=== PATIENT | male | born 1960 | race Caucasian/White ===

== ENCOUNTER 2022-09-23 14:14 | Outpatient (CLI) | payer BC, SELFPAY ==
--- NOTE | 2022-09-23 14:48 | ECG_ITS ---
Measurements Intervals [place] Rate: 72 P: 36 MT: 152 QRS: 43 QRSD: 89 T: 44 QT: 382 QTc: 419 Interpretive Statements SINUS RHYTHM BASELINE ARTIFACT NORMAL ECG NO PREVIOUS ECG AVAILABLE FOR COMPARISON Electronically Signed On 09-23-2022 14:58:25 [facility] by Dejan Hinson M.D.
[2022-09-23 15:50] LABS: Anion Gap 12 mmol/L (8-16); Blood Urea Nitrogen 13 mg/dL (7-18); Calcium 9.5 mg/dL (8.5-10.1); Carbon Dioxide 26 mmol/L (21-32); Chloride 101 mmol/L (98-108); Estimated Glomerular Filt Rate > 60; Osmolality Calculated 302 mOsm/kg (285-295); Potassium 3.9 mmol/L (3.5-5.1); Sodium 139 mmol/L (136-145)
[2022-09-23 15:53] LABS: Glucose 358 mg/dL (70-99)
== END 2022-09-23 14:15 | disposition home or self-care (01) ==
LOC: CHSLAB 14:17
PROVIDERS: PCP Family Medicine; Visit Provider Orthopaedic Surgery Hand Surgery
DX: M25.512 Pain in left shoulder (principal)
CPT/HCPCS: 36415; 80048; 93005

== ENCOUNTER 2024-12-28 10:13 | Outpatient (CLI) | payer OTHER, SELFPAY ==
[2024-12-28 10:55] LABS: Anion Gap 8 mmol/L (4-12); Blood Urea Nitrogen 24 mg/dL (9-20); Calcium 9.9 mg/dL (8.4-10.2); Carbon Dioxide 30 mmol/L (22-30); Chloride 100 mmol/L (98-107); Estimated Glomerular Filt Rate > 60; Glucose 140 mg/dL (65-110); Potassium 4.1 mmol/L (3.4-5.0); Sodium 138 mmol/L (137-145)
--- OUTSIDE RECORDS SUMMARY | 2024-12-28 11:38 | XMS_ITS | Clinical Summary ---
Author Organization [facility] Address [address] [place] [address] Care Team Providers Care Fingernail Former Name Role Phone Manish Nj MD Primary Care Provider [phone] Allergies Active Allergy Reactions Criticality Noted Date Comments Aspirin Rash Medium 05/09/2020 Medications lisinopril-hydr oCHLOROthiazide (ZESTORETIC) 20-12.5 mg per tablet 2 tablets Active traMADoL (ULTRAM) 50 mg tablet TAKE 1 TO 2 TABLETS BY MOUTH EVERY 6 HOURS NEEDED 04/18/2020 Active metFORMIN XR (GLUCOPHAGE XR) 500 mg 24 hr tablet Take 1,000 mg by mouth 2 (two) times a day 05/01/2020 Active Active Problems Problem Noted Date Diagnosed Date Sensorineural hearing loss ( SNHL) of left ear with restricted hearing of right ear 05/09/2020 Assessment & Plan (05/09/2020 1:44 PM CDT): Avoid ear cleaning techniques Avoid water to ears Call if ears plug up again Impacted cerumen of right ear 05/09/2020 Assessment & Plan (05/09/2020 1:44 PM CDT): Avoid ear cleaning techniques Avoid water to ears Call if ears plug up again Vinegar and water recipe discussed and Handout provided Surgical History Surgery Date Site/Laterality Comments CHOLECYSTECTOMY KNEE SURGERY NECK SURGERY Medical History Medical History Date Comments Hypertension Diabetes (HCC) Social History Tobacco Use Types Packs/Day Years Used Date Smoking Tobacco: Never Smokeless Tobacco: Never Alcohol Use Standard Drinks/Week Comments Not Currently 0 (1 standard drink = 0.6 oz pur e alcohol) Personal Safety Answer Date Recorded Getting School Help Needed Not on file 01/02 Sex and Gender Information Value Date Recorded Sex Assigned at Not on file 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 Gender Identity Not on file Sexual Orientation Not on file Obstetrics History Last Filed Vital Signs Vital Sign Reading Time Taken Comments Blood Pressure 143/76 05/09/2020 1:27 PM CDT Pulse 98 05/09/2020 1:27 PM CDT Temperature 36.4 C (97.5 F) 05/09/2020 1:25 PM CDT Respiratory Rate - - Oxygen Saturation - - Inhaled Oxygen Concentration - - Weight 130.3 kg (287 lb 3.2 oz) 05/09/2020 1:25 PM CDT Height 182.9 cm (6') 05/09/2020 1:25 PM CDT Body Mass Index 38.95 05/09/2020 1:25 PM CDT Plan of Treatment Health Maintenance Due Date Last Done Comments Colon Cancer Screening-Colonoscopy 1962 Depression Screening 1962 Hepatitis C Screening 1962 Prostate Cancer Screening-PSA 1962 DTaP/Tdap/Td Vaccine (1 - Tdap) 1973 Hepatitis B Screening 1980 Regular Well Visit/Exam 18-64 1980 Zoster Vaccine (1 of 2) 2012 Covid-19 Vaccine (2023-2 5 season) 2024 10/28/2021, 12/26/2020, 11/28/2020 Influenza Vaccine (#1) 2024 Pneumococcal vaccine <65 Aged Out No longer eligible based on patient's age to complete this topic Insurance [facility] OOS BLUE ACCESS OOS BLUE ACCESS OOS Care Teams Fingernail Former Relationship Specialty Start Date End Date Manish Nj MD [address] [place] [address] [place] [address] PCP - General Family Medicine 04/18/20
--- OUTSIDE RECORDS SUMMARY | 2024-12-28 11:38 | XMS_ITS | Referral Summary ---
Author Organization [facility] Address [address] [place] [address] Care Team Providers Care Instructional Design Specialist Name Role Phone Manish Nj MD Primary Care Provider [phone] Allergies Active Allergy Reactions Criticality Noted Date [...] and water recipe discussed and Handout provided Social History Tobacco Use Types Packs/Day Years Used Date Smoking Tobacco: Never Smokeless Tobacco: Never Alcohol Use Standard Drinks/Week Comments Not Currently 0 (1 standard drink = 0.6 oz pur e alcohol) Personal Safety Answer Date Recorded Getting School Help Needed Not on file 01/02 Sex and Gender Information Value Date Recorded Sex Assigned at Not on file 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 Care Teams Instructional Design Specialist Relationship Specialty Start Date End Date Manish Nj MD [facility] [place] [address] PCP - General Family Medicine 04/18/20
--- OUTSIDE RECORDS SUMMARY | 2024-12-28 11:38 | XMS_ITS | Clinical Summary ---
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 Gender Identity Not on file Sexual Orientation Not on file Last Filed Vital Signs Vital Sign Reading Time Taken Comments Blood Pressure 168/84 08/03/2022 1:11 AM CDT Pulse 85 08/03/2022 1:11 AM CDT Temperature 36.2 C (97.1 F) 08/02/2022 7:45 PM CDT Respiratory Rate 18 08/03/2022 1:11 AM CDT Oxygen Saturation 97% 08/03/2022 1:11 AM CDT Inhaled Oxygen Concentration - - Weight 129.3 kg (285 lb) 08/02/2022 7:45 PM CDT Height 182.9 cm (6') 08/02/2022 7:45 PM CDT Body Mass Index 38.65 08/02/2022 7:45 PM CDT Plan of Treatment Health Maintenance Due Date Last Done Comments Colorectal Cancer Screening Colonoscopy (10 Years) 1962 Annual Physical 1965 Hepatitis C 1980 Zoster Vaccines (1 of 2) 2012 DTaP, Tdap and Td Vaccines ( 1 - Tdap) 02/10/2024 02/09/2024 COVID-19 Vaccine ( - 2023-2 5 season) 2024 10/28/2021, 12/26/2020, 11/28/2020 Influenza Adult (#1) 2024 RSV Immunization or 60+ Years (1 - 1-dose 75+ series) 2037 Meningococcal B Vaccine Aged Out No l onger eligible based on patient's age to complete this topic Meningococcal Vaccine Aged Out No hany heather eligible based on patient's age to complete this topic Pneumococcal Vaccine: Pediatrics (0 to 5 Years) and At-Risk Patients (6 to 64 Years) Aged Out No longer eligible b ased on patient's age to complete this topic RSV Immunizations Under 20 Months Aged Out No longer eligible b ased on patient's age to complete this topic Insurance [facility] Care Teams Plaster Mold Maker Relationship Specialty Start Date End Date None, Provider, PCP - General UNKNOWN PHYSICIAN SPECIALTY 08/02/22
--- OUTSIDE RECORDS SUMMARY | 2024-12-28 11:39 | XMS_ITS | CONTINUITY OF CARE DOCUMENT ---
Author Name ofe ofe Address Unknown Organization [facility] Address [address] [place] [address] Phone [phone] Care Team Providers Care Precipitate Washer Name Role Phone EDWIN MOLINA, MICHELL Bob Unavailable [phone] SEPIDEH MOLINA, HELLEN Brown Unavailable INSURANCE PROVIDERS Payer name Policy type / Coverage type [address] [facility] constitution party ID COVENTRY- OPEN ACCESS/PPO Other [id number]
--- OUTSIDE RECORDS SUMMARY | 2024-12-28 11:39 | XMS_ITS | Data Portability ---
Author Organization [place] [facility] [employer], Main Office Address [address] [place] [address] Care Team Providers Care Sticker Hand Name Role Phone MANISH VALENTE Primary Care Provider [phone] MANISH VALENTE Referring Provider Assessment No assessment recorded. Plan of Treatment Reminders Order Date Submit Date Provider Last Modified By Organization Details Last Modified Time Details Appointments Any 15 2024 09:00A BASSAM Varner Not available Not available Not available Lab glycohe moglobi n, total, blood 2023 024 [facility] (Lab), [address] [place], [address], 05/05/2024 21:32:02 Referral pain managem ent referra l - Please call patient to nick hassan an appoint ment. Thank you. 2023 024 [email or web address] Interventional Pain Management, 2022 Promise [place], [address], [address], 09/30/2024 08:44:00 Procedures None recorde d. Surgeries None recorde d. Imaging electro myogram + nerve conduct ion study - Please call pt to nick hassan 2023 024 [facility] --Emg & Nerve Condution Scheduling, [address], [place], [address], 09/08/2024 16:51:22 Medication Orders Ozempic 0.25 mg or 0.5 mg (2 mg/3 mL) subcuta neous pen injecto r [address] [facility] [address] [place], [address], 11/02/2024 10:07:51 Ozempic 1 mg/dose (4 mg/3 mL) subcuta neous pen injecto r [address] [facility] [address] [facility], [place], [address], 09/01/2024 15:18:16 duloxet ine 60 mg capsule ,delaye d release [address] [facility] [address] [facility], [place], [address], 09/01/2024 15:18:17 acetami nophen 500 mg tablet 2023 024 [facility] [address] [facility], [place], [address], 09/01/2024 14:43:40 Ozempic 2 mg/dose (8 mg/3 mL) subcuta neous pen injecto r 2023 024 [facility] [address] [place], [address], 11/02/2024 09:56:05 cyanoco balamin (vit B-12) 1,000 mcg/mL injecti on solutio n [address] [facility] [address] [place], [address], 05/05/2024 15:48:32 Patient TargetsNo targets recorded. Patient InstructionsNo instructions recorded. Reason for Referral Pain Management Referral for Degeneration of cervical intervertebral disc Please call patient to schedule an appointment. Thank you. Referring Physician: Ita Salas, Family Medicine, Encounter Date: 09/01/2024 Results Created Date Observation Date Name Description Value Unit Range Abnormal Flag Note LastModifiedBy Organization Detail LastModifiedTime 09/08/20 24 09/08/2024 elect romyo gram + nerve condu ction study No observ ation record ed. [facility] [address] [place], [address], 09/09/2024 08:05:44 09/13/20 24 09/08/2024 elect romyo gram + nerve condu ction study No observ ation record ed. [email or web address] [facility] [address] [place], [address], 09/14/2024 11:43:10 Result Notes None recorded. Problems Name Problem SNOMED Code Status Onset Date Resolution Date Notes Provider Name and Address Organization Details Recorded Time Pain of left shoulder joint 1592145056339 9109 Active 2021 Not Available [facility] 3 05:29:41 Plantar fasciitis 400297066 Active Not Available [facility] 3 05:29:41 Osteoarthr itis of knee 176592436 Active Not Available [facility] 3 05:29:41 Cervical spondylosi s without myelopathy 538160021 Active Not Available [facility] 3 05:29:41 Hypertensi ve disorder 18695001 Active Not Available [facility] 3 05:29:41 Hyperlipid emia 70249059 Active Not Available [facility] 3 05:29:41 Essential hypertensi on 90992238 Active Not Available [facility] 3 05:29:41 Pernicious anemia 74071388 Active Not Available [facility] 3 05:29:41 Partial thickness rotator cuff tear 650149491 Active 2022 Not Available [facility] 3 05:29:41 Full thickness rotator cuff tear 421440266 Active 2022 Not Available [facility] 3 05:29:41 Type 2 diabetes mellitus without complicati on 556979999 Active 2022 Not Available [facility] 3 05:29:41 Chronic low back pain 287908161 Active 2022 Not Available [facility] 3 05:29:41 Vitamin B12 deficiency (non anemic) 79098235 Active 2022 Not Available [facility] 3 05:29:41 Obese 152119732 Active 2023 ROSIE Lerma [address], [address], [place], [address] , [employer] [facility] 4 12:27:08 Screening for malignant neoplasm of prostate Active 2023 ROSIE Lerma [address], [address], [place], [address] , [employer] [facility] 4 12:12:33 Spinal stenosis in cervical region 93708339 Active 2023 BASSAM Hood [address], [address], [place], [address] , [facility] 4 15:27:55 Blister of foot without infection 4030250 Active 2023 BASSAM Hood [address], [address], [place], [address] , [employer] [facility] 4 15:33:09 Neuropathy 967283470 Active 2023 BASSAM Hood [address], [address], [place], [address] , [employer] [facility] 4 17:11:26 Degenerati on of cervical interverte bral disc 37220659 Active 2023 BASSAM Hood [address], [address], [place], [address] , [employer] [facility] 4 15:47:04 Disorder of vitamin B12 263274623 Active 2023 BASSAM Hood [address], [address], [place], [address] , [facility] [employer] [facility] 4 15:48:01 Bilateral carpal tunnel syndrome 3624505840534 9101 Active 2023 BASSAM Hood [address], [facility] [address], [place], [address] , [facility] [employer] [facility] 4 17:05:34 Problem Notes None recorded. Procedures Surgical History Date Name Laterality Status Provider Name and Address Organization Details Recorded Time cholecystectomy completed Yoly Reese RN [facility] [employer] [facility] 02/09/2024 15:16:38 arthroplasty of left shoulder completed Yoly Reese RN [facility] [employer] [facility] 02/09/2024 15:16:49 Imaging Results Imaging Date Name Status LastModified by Organization Details LastModified Time 09/08/2024 electromyogram + nerve conduction study completed [email or web address] [place] [address] Outpatient Physical Therapy Work [facility] [address] [place] [address], [address], 09/09/2024 08:05:44 09/08/2024 electromyogram + nerve conduction study completed [facility] Physical [facility] [address] [place] [address], [address], 09/14/2024 11:43:10 Procedure Notes None recorded. Medical Equipment None Reported. Allergies Allergen ID Allergen Name Allergen Category Reaction Reaction Severity Criticality Documentation Date Start Date Code Code System Note Provider Name and Address Organization Details Recorded Time 62815 niacin medicatio n Not available Not available Not available 12/18/2022 7393 RxNorm Not Available [facility] 3 06:00:27 26880 aluminum aspirin Not available hives Not available Not available 12/18/20222021 611 RxNorm Not Available [facility] 3 06:00:27 51472 Easprin medicatio n Not available Not available Not available 12/18/202222057 4 RxNorm Not Available [facility] 3 06:00:27 Medications Name Sig Start Date Stop Date Status Note LastModified by Organization Details LastModified Time Prescriptio n - Change active Not Available Not Available N ot Available Prescriptio n - Prior Authorizati on Request active Not Available Not Available N ot Available carisoprodo l 350 mg tablet TAKE 1 TABLET BY MOUTH THREE TIMES DAILY 05/01 completed Not Available Not Available Not Available amoxicillin 500 mg capsule Take 1 capsule every 8 hours by oral route. active Not Available Not Available No t Available hydrocodone 7.5 mg-ibuprofe n 200 mg tablet active Not Available Not Available Not Available syringe (disposable ) 1 mL use to administe r cyanocoba brandy once a month 03/09 completed Not Available Not Available Not Available prednisone 10 mg tablet 12/11 completed Not Available Not Available Not Available clindamycin HCl 300 mg capsule TAKE 1 CAPSULE BY MOUTH EVERY 6 HOURS UNTIL GONE 05/13 completed Not Available Not Available Not Available BD Insulin Syringe 1 mL 25 x 1 03/09 completed Not Available Not Available Not Available lisinopril 20 mg-hydrochl orothiazide 12.5 mg tablet Take 2 tablets by mouth once daily 2024 active Not Available Not Available Not Avai lable azithromyci n 250 mg tablet Take 2 TABLET EVERY DAY by oral route for 1 day. Than 1 tablet for 4 days 04/08 completed Not Available Not Available Not Available tizanidine 4 mg tablet TAKE 1 TABLET BY MOUTH EVERY 6 HOURS 02/08 completed Not Available Not Available Not Available metoprolol succinate ER 50 mg tablet,exte nded release 24 hr Take 1 tablet every day by oral route. active Not Available Not Available No t Available hydrocodone 5 mg-acetamin ophen 325 mg tablet 02/14 completed Not Available Not Available Not Available meloxicam 15 mg tablet Take 1 tablet every day by oral route. 05/01 completed Not Available Not Available Not Available sucralfate 1 gram tablet Take 1 tablet 4 times a day by oral route. active Not Available Not Available No t Available penicillin V potassium 500 mg tablet Take 1 tablet every 8 hours by oral route. active Not Available Not Available No t Available acetaminoph en 300 mg-codeine 30 mg tablet TAKE 1 TABLET BY MOUTH 4 TIMES DAILY NEEDED 03/06 completed Not Available Not Available Not Available amlodipine 5 mg tablet TAKE 1 TABLET BY MOUTH ONCE DAILY 06/29 completed Not Available Not Available Not Available ciprofloxac in 500 mg tablet Take 1 tablet every 12 hours by oral route for 5 days. 03/09 completed Not Available Not Available Not Available sulfamethox azole 800 mg-trimetho prim 160 mg tablet TAKE 1 TABLET BY MOUTH EVERY 12 HOURS UNTIL GONE 11/02 completed Not Available Not Available Not Available hydrocodone 10 mg-acetamin ophen 325 mg tablet Take 1-2 TABLET EVERY 4 HOURS by oral route prn. 03/09 completed Not Available Not Available Not Available tramadol 50 mg tablet TAKE 1 TABLET BY MOUTH EVERY 6 TO 8 HOURS NEEDED FOR PAIN active Not Available Not Available No t Available acetaminoph en 500 mg tablet Take 2 tablets every 8 hours by oral route as needed for 30 days. 09/01 completed Not Available Not Available Not Available sildenafil 100 mg tablet Take 1 tablet every day by oral route as needed. 03/06 completed Not Available Not Available Not Available triamcinolo ne acetonide 0.1 % topical cream Apply 1 applicati on twice a day by topical route for 30 days. active Not Available Not Available No t Available ondansetron 8 mg disintegrat ing tablet DISSOLVE 1 TABLET IN MOUTH THREE TIMES DAILY NEEDED 03/06 completed Not Available Not Available Not Available Celebrex 200 mg capsule Take 1 capsule every day by oral route. 2013 active Not Available Not Available Not Avai lable tamsulosin 0.4 mg capsule Take 1 capsule every day by oral route. active Not Available Not Available No t Available amlodipine 10 mg tablet Take 1 tablet every day by oral route as directed for 90 days. active Not Available Not Available No t Available hydrocodone 7.5 mg-acetamin ophen 325 mg tablet TAKE 1 TABLET BY MOUTH EVERY 6 HOURS NEEDED FOR PAIN 03/06 completed Not Available Not Available Not Available cyanocobala min (vit B-12) 1,000 mcg/mL injection solution INJECT 1 ML INTRAMUSC ULARLY ONCE EVERY MONTH active Not Available Not Available No t Available hydrocodone 7.5 mg-acetamin ophen 750 mg tablet active Not Available Not Available No t Available BD Luer-Placido Syringe 3 mL 25 gauge x 1 USE WITH B12 INJECTION S 08/12 completed Not Available Not Available Not Available hydrocodone 5 mg-acetamin ophen 500 mg tablet active Not Available Not Available No t Available mupirocin 2 % topical ointment APPLY A SMALL AMOUNT TO THE AFFECTED AREA(S) THREE TIMES DAILY active Not Available Not Available No t Available clobetasol 0.05 % topical ointment 03/09 completed Not Available Not Available Not Available lisinopril 10 mg-hydrochl orothiazide 12.5 mg tablet TAKE TWO TABLETS BY MOUTH ONCE DAILY 05/01 completed Not Available Not Available Not Available levofloxaci n 500 mg tablet 03/09 completed Not Available Not Available Not Available methylpredn isolone 4 mg tablets in a dose pack TAKE BY MOUTH DIRECTED ON INSIDE OF PACKAGE 08/15 completed Not Available Not Available Not Available metformin ER 500 mg tablet,exte nded release 24 hr TAKE 2 TABLETS BY MOUTH TWICE DAILY 09/01 completed Not Available Not Available Not Available naproxen 500 mg tablet Take 1 tablet by mouth twice daily active Not Available Not Available No t Available amoxicillin 875 mg-potassiu m clavulanate 125 mg tablet TAKE 1 TABLET BY MOUTH EVERY 12 HOURS 07/04 completed Not Available Not Available Not Available oxycodone 5 mg tablet 03/06 completed Not Available Not Available Not Available duloxetine 30 mg capsule,del ayed release TAKE 1 CAPSULE BY MOUTH ONCE DAILY DIRECTED 11/02 completed Not Available Not Available Not Available duloxetine 60 mg capsule,del ayed release TAKE 1 CAPSULE BY MOUTH ONCE DAILY DIRECTED active Not Available Not Available No t Available pregabalin 100 mg capsule TAKE 1 CAPSULE BY MOUTH THREE TIMES DAILY active Not Available Not Available No t Available metformin ER 500 mg 24 hr tablet,exte nded release (gastric retention) Take 2 tablets twice a day by oral route. 08/12 completed Not Available Not Available Not Available icosapent ethyl 1 gram capsule Take by oral route for 30 days. 08/21 completed Not Available Not Available Not Available Jardiance 25 mg tablet Take 1 tablet every day by oral route as directed for 90 days. 06/29 completed Not Available Not Available Not Available Ozempic 0.25 mg or 0.5 mg (2 mg/1.5 mL) subcutaneou s pen injector Inject 0.25 mg every week by subcutane ous route. 12/11 completed Not Available Not Available Not Available Ozempic 1 mg/dose (4 mg/3 mL) subcutaneou s pen injector INJECT 1MG SUBCUTANE OUSLY ONCE WEEKLY active Not Available Not Available No t Available Ozempic 2 mg/dose (8 mg/3 mL) subcutaneou s pen injector INJECT 2MG SUBCUTANE OUSLY ONCE WEEKLY 11/02 completed Not Available Not Available Not Available Ozempic 0.25 mg or 0.5 mg (2 mg/3 mL) subcutaneou s pen injector INJECT 0.5MG SUBCUTANE OUSLY ONCE EVERY WEEK active Not Available Not Available No t Available Vitals Date Recorded Body height Body mass index (BMI) Body weight Body temperature Heart rate Oxygen saturation Oxygen saturation in Arterial blood by Pulse oximetry Systolic blood pressure Diastolic blood pressure Provider Name and Address Organization Details Last Updated DateTime 182.88 cm 34.9 kg/m2 337874. 59 g 98.2 [degF] 90 /min 97 % 97 % 154 mm[Hg] 86 mm[Hg] Maurice Hdz [facility] [employer] 15:20:47 Date Recorded Respiratory rate Provider Name a nd Address Organization Details Last Updated DateTime 05/05/2024 20 /min Kevin Devine [address] [place] [address], [address], [place] [facility] [employer] 05/05/2024 15:27:36 Date Recorded Body height Provider Name an d Address Organization Details Last Updated DateTime 05/05/2024 182.88 cm Yoly Reese RN [facility] [employer] 05/05/2024 17:03:49 Date Recorded Body height Body mass index (BMI) Body weight Body temperature Heart rate Respiratory rate Oxygen saturation Oxygen saturation in Arterial blood by Pulse oximetry Pain severity - 0-10 verbal numeric rating [Score] - Reported Systolic blood pressure Diastolic blood pressure Provider Name and Address Organization Details Last Updated DateTime 4 182.88 cm 33.1 kg/m2 987497. 59 g 97.2 [degF] 91 /min 24 /min 98 % 98 % 3 136 mm[Hg] 76 mm[Hg] Yoly Reese RN [facility] [employer] [facility] 4 14:11:45 Date Recorded Body height Body mass index (BMI) Body weight Body temperature Heart rate Respiratory rate Oxygen saturation Oxygen saturation in Arterial blood by Pulse oximetry Pain severity - 0-10 verbal numeric rating [Score] - Reported Systolic blood pressure Diastolic blood pressure Provider Name and Address Organization Details Last Updated DateTime 4 182.88 cm 34 kg/m2 218017. 68 g 97.2 [degF] 75 /min 20 /min 98 % 98 % 4 164 mm[Hg] 84 mm[Hg] Yoly Reese RN [facility] [employer] 4 14:46:59 Date Recorded Body height Body mass index (BMI) Body weight Body temperature Heart rate Respiratory rate Oxygen saturation Oxygen saturation in Arterial blood by Pulse oximetry Pain severity - 0-10 verbal numeric rating [Score] - Reported Systolic blood pressure Diastolic blood pressure Provider Name and Address Organization Details Last Updated DateTime 5 182.88 cm 35.6 kg/m2 553665 g 97.2 [degF] 105 /min 24 /min 97 % 97 % 0 178 mm[Hg] 90 mm[Hg] Yoly Reese RN [facility] [employer] 5 09:47:40 Social History Question Answer Notes LastModified by Organizat ion Details LastModified Time Tobacco Smoking Status Unknown If Ever Smoked Carolin [email or web address], [place] [facility] [employer] 03/25/2023 09:52:50 Do You Have An Advance Directive? No Information not available 02/09/2024 What Is Your Level Of Alcohol Consumption? None [id number] Information not available 12/18/2022 In The 14 Days Before Symptom Onset, Have You Had Close Contact With A Laboratory-confi rmed COVID-19 While That Case Was Ill? No Information not available 02/09/2024 In The 14 Days Before Symptom Onset, Have You Had Close Contact With A Person Who Is Under Investigation For COVID-19 While That Person Was Ill? No Information not available 02/09/2024 Are You Currently Employed? Yes Information not available 02/09/2024 What Type Of Diet Are You Following? 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 No Information not available 02/09/2024 Where Do You Live? SingleLevelHouse Information not available 02/09/2024 Do You Have A Medical Power Of Software Asset Management Analyst? No Information not available 02/09/2024 What Was The Date Of Your Most Recent Tobacco Screening? 08/15/2022 [email or web address] Information not available 03/25/2023 Do You Have Any Pets? Yes Information not available 02/09/2024 What Is Your Relationship Status? [email or web address] Information not available 01/15/2024 Do You Use Your Seat Belt Or Car Seat Routinely? Yes Information not available 02/09/2024 Do You Have Smoke And Carbon Monoxide Detectors In Your Home? Yes Information not available 02/09/2024 Are You Passively Exposed To Smoke? No Information not available 02/09/2024 Are There Any Smokers In Your House? No Information not available 02/09/2024 Do You Participate In Social Media? No Information not available 02/09/2024 Do You Feel Stressed (tense, Restless, Nervous, Or Anxious, Or Unable To Sleep At Night)? [id number] Information not available 09/01/2024 Have You Recently Traveled Abroad? No Information not available 02/09/2024 Sex: Unknown Functional Status Question Answer Note LastModified by Organization D etails LastModified Time What is your exercise level? None Information not available 02/09/2024 Mental Status None recorded. Family History Nothing Reported. Medical History Condition Response DIABETES, TYPE Y OBESITY Y AUTISM SPECTRUM DISORDER (ASD) Y HYPERTENSION Y HIGH CHOLESTEROL / HYPERLIPIDEMIA Y Immunizations Vaccine Type Date Status Note Provider Nam mo and Address Organization Details Recorded Time COVID-19, mRNA, LNP-S, PF, 100 mcg/0.5mL dose or 50 mcg/0.25mL dose 02/09/202 1 completed BASSAM Hood [address], [address], [place], [address], [facility] [employer] [facility] 02/09/2024 15:35:52 COVID-19, mRNA, LNP-S, PF, 100 mcg/0.5mL dose or 50 mcg/0.25mL dose 1 completed BASSAM Hood [address], [address], [place], [address], [facility] [employer] [facility] 02/09/2024 15:35:52 COVID-19, mRNA, LNP-S, PF, 30 mcg/0.3 mL dose 2 completed BASSAM Hood [address], [place], [address], [facility] [employer] [facility] 02/09/2024 15:35:52 Td (adult), 2 Lf tetanus toxoid, preservative free, adsorbed 4 completed Yoly Reese RN [place], [place] [facility] [employer] [facility] 02/09/2024 16:11:51 Past Encounters Encounter ID Performer Location Encounter Start Date Encounter Closed Date Diagnosis/Indication Diagnosis SNOMED-CT Code Diagnosis ICD10 Code Diagnosis Note [id number] [facility] [place] [place] [address] 06/06/2022 00:00:00 06/07/2022 06:35:04 [id number] [facility] [place] [address] 07/04/2022 00:00:00 07/05/2022 06:11:29 [id number] [facility] [place] [address] [place] [address] 08/15/2022 00:00:00 08/15/2022 13:18:21 [id number] [facility] [place] [address] [facility] [address] [place] [address] 08/23/2022 00:00:00 08/23/2022 11:52:56 [id number] [facility] [place] [address] [place] [address] 08/27/2022 00:00:00 08/27/2022 12:10:22 [id number] [facility] [place] [address] [place] [address] 10/08/2022 00:00:00 10/08/2022 10:43:10 [id number] [facility] [place] [address] [place] [address] 10/15/2022 00:00:00 10/15/2022 10:22:13 [id number] [facility] [place] [address] [place] [address] 11/05/2022 00:00:00 11/05/2022 12:14:58 [id number] [facility] [place] [address] [place] [address] 12/17/2022 00:00:00 12/17/2022 12:47:31 [id number] Salomon Vital MD [facility] [place] [address] [place] [address] 01/14/2023 09:51:29 01/14/2023 10:38:21 Partial thickness rotator cuff tear 950336102 M75.102 Full thick ness rotator cuff tear 744020236 M75.122 patient can continue with strengthen ing now as tolerated he is 3 months postop we will work on phase 3 strengthen ing. Due to his cervical issues they can also do cervical traction for 10-15 minutes prior to starting the therapy on his shoulder as he is getting some cervical impingemen t type issue with forward elevation of the arm. I will see him back in 3 months. Follow-up with Dr. Jeronimo concerning his cervical nerve root impingemen t [id number] Manish Nj MD [facility] Ivon pereyra [address] [place] [address] 03/06/2023 14:03:53 03/06/2023 14:50:56 Uncontrolled type 2 diabetes mellitus 688028964 E11.65 A1C is 8.1% will start ozempic F/u in 3 months Chronic neck pain 805425 9015 107 M54.2 tramadol sent to [facility]. [id number] ROSIE Oswald [facility] [place] [address] [place] [address] 03/25/2023 09:51:39 03/25/2023 10:31:26 Pain of left shoulder joint 5082544665 [id number] M25.512 [id number] Manish Nj MD [facility] Ivon pereyra [address] [facility] [place] [address] 06/12/2023 16:14:11 06/12/2023 16:51:18 Type 2 diabetes mellitus without complication [id number] E11.9 Hyperlipidemia 51993877 E78.5 Bereavement 36294005 Z63 .4 Suggest counseling for grief Vitamin B1 2 deficiency (non anemic) 15630431 E53.8 Chronic neck pain 175795 8138 107 M54.2 tramadol sent to [facility] [id number] ROSIE [facility] Ivon pereyra [address] [facility] [place] [address] 12/11/2023 12:13:11 12/11/2023 12:34:14 Obese [id number] E66.9 Shoulder joint pain 2679 64917 M25.519 left [id number] ROSIE [facility] Ivon pereyra [address] [place] [address] 01/15/2024 11:46:21 01/15/2024 12:14:34 Arthritis 0873182 M19.90 Chronic low back pain 27 8980935 M54.50 Essential hypertension 80342904 I10 Full thick ness rotator cuff tear 468627756 M75.122 Hyperlipidemia 76485839 E78.5 Osteoarthritis 949713954 M19.90 Pernicious anemia 845859 09 D51.0 Type 2 hoang betes mellitus without complication 643473491 E11.9 Screening for malignant neoplasm of prostate 003145850 Z12.5 Vitamin B1 2 deficiency (non anemic) 93211766 E53.8 [id number] ROSIE [facility] [address] [facility] [place] [address] 01/28/2024 14:36:22 01/30/2024 04:10:39 [id number] Ita Salas [address] [address] 02/09/2024 15:03:37 02/09/2024 15:58:18 Spinal stenosis in cervical region 45634644 M48.02 Blister of foot without infection 7063034 S90.821A Administra tion of diphtheria, pertussis, and tetanus vaccine 373885268 Z23 Essential hypertension 47058597 I10 [id number] Ita Salas [employer] [address] [address] 03/23/2024 16:12:14 03/23/2024 17:28:48 Chronic neck pain 3084223781 107 M54.2 Neuropathy 262949023 G62 .9 [id number] Ita Salas [address] [address] 05/05/2024 15:11:49 05/06/2024 08:11:02 Type 2 diabetes mellitus without complication 052311541 E11.9 Degenerati on of cervical intervertebral disc 37651248 M50.30 Sees neuro, not interested in pain management . Will consider pain management in the future Disorder o f vitamin B12 015196426 E53.8 [id number] Ita Salas [employer] [address] [address] 05/05/2024 15:58:56 05/05/2024 15:59:51 [id number] Ita Salas [address] [address] 06/29/2024 13:57:11 06/29/2024 14:46:13 Spinal stenosis in cervical region 16245963 M48.02 Patient will see pain management after he retires in ll add tylenol 1,000 mg PO TIDAdvised to stop Naproxen [id number] [facility] [address] [address] 09/01/2024 14:33:22 09/01/2024 15:25:45 Degeneration of cervical intervertebral disc 40998292 M50.30 Sees neuro, not interested in pain management . Will consider pain management in the future Pain management education discussed today. Neuropathy 246927911 G62 .9 Numbness, burning, and loss of strength in FREDDY hands Type 2 hoang betes mellitus without complication 229461162 E11.9 Patient unable to tolerate 2 mg Ozempic [id number] [facility] [address] 11/02/2024 09:29:34 11/03/2024 10:35:16 Type 2 diabetes mellitus without complication 610282831 E11.9 Patient unable to tolerate 1 mg OzempicHe is not taking Jardiance anymore Bilateral carpal tunnel syndrome [id number] 7617712 G56.03 Patient states he does not want surgery, will wait it out until he cannot stand it anymore.I ordered cock-up splints but he does not want to use them. Degenerati on of cervical intervertebral disc 62153198 M50.30 Having severe pain with radiculopa thy. Does not want interventi ons at this time. Is taking tramadol and pregabalin .Also taking 3,000 mg tylenol daily and naproxen Health Concerns Section Related Observation LastModified by Organization Detai ls LastModified Time None Recorded Concern Status LastModified by Organization Details LastModified Time None Recorded Advance Directives Directive N: Payers Encounter Date Sequence Insurance Name Policy Number Policy Strange Covered Member ID Strange Member ID Guarantor Name 05/05/2024 1 [place] [id number] Darron Suero [id number] Darron Suero 05/05/2024 1 [place] [id number] Darron Suero [id number] Darron Suero 06/29/2024 1 [place] [id number] Darron Suero [id number] Darron Suero 09/01/2024 1 [place] [id number] Darron Suero [id number] Darron Suero 11/02/2024 1 [place] [id number] Darron Suero [id number] Darron Suero Notes Date Note Type Note Provider Name and Address Organization Details Recorded Time 05/05/2024 text/html Pt is here for f /u on his meds and chronic conditions. We initiated duloxetine at his last visit for neuropathy. He states this is not really helping and his pain and numbness are severe. He notes that this improves with Vitamin B injections.He has spinal stenosis, he required a surgery in 2012 which helped, but he feels his pain is equal to when he last had surgery.He say neurosurgery and they told him he may need surgery, but not now. He would like to get a second opinion, but does not want to do it until the end of the year. He has type 2 DM, we increased Ozempic at his last visit, he states it has not curved his appetite. Will check A1C to see if helping blood sugars. Ita Salas, [facility] [address] [facility], [facility] [address], [place], [address], [facility] 05/06/2024 08:11:00 06/29/2024 text/html Darron Suero is a 63 year old male patient here today to FU on chronic pain. Chronic back pain. Is interested in seeing pain management would like to wait until he retires in September. Has numbness in FREDDY hands and feet. Has to use ice hot to sleep. We started duloxetine at last visit, he states this is not working and would like to stop taking. He is taking pregabalin 100 mg TID and tramadol 50 mg TID. He states he has attempted to stop taking these but is in severe pain by the evening. Is also taking naproxen, states without it he is having neck pain and migraines. Discussed with patient that Tramadol and Naproxen cannot be taken together, he became upset and states he cannot function without this regime. Advised to start Tylenol 1,000 mg TID and attempt to stop Naproxen. Expresses issues with so many medications. Would like to stop taking jardiance. States he has a 3 month supply right now. He will finish this current supply and will not refill. Last A1C 5.8. Ita Salas, [employer] [address] [facility], [place], [address], [facility] 06/29/2024 14:45:04 09/01/2024 text/html Darron Suero is a 63 year old male patient here today to FU on chronic pain. Chronic back pain. Is interested in seeing pain management would like to wait until he retires in September. Has numbness in FREDDY hands and feet. Has to use icy hot to sleep. We started duloxetine at last visit, he states this is not working and would like to stop taking. He is taking pregabalin 100 mg TID and tramadol 50 mg TID. He states he has attempted to stop taking these but is in severe pain by the evening. Is also taking naproxen, states without it he is having neck pain and migraines. Discussed with patient that Tramadol and Naproxen cannot be taken together, he became upset and states he cannot function without this regime. Advised to start Tylenol 1,000 mg TID and attempt to stop Naproxen. Pt states that he attempted to decrease Naproxen and increase tylenol and had two episodes of dizziness, stopped taking tylenol and went back to the Naproxen and Tramadol. Discussed again that these are both NSAIDs and should not be taken together.States he is finding relief from Painquil (acetaminophen 1,000mg), advised that this is Tylenol and if he is taking this he should only do 2 doses of Tylenol 1,000 mg daily. Expresses issues with so many medications. Would like to stop taking jardiance. States he has a 3 month supply right now. He will finish this current supply and will not refill. Last A1C 5.8. He is taking Ozempic 2 mg and has GI upset, he would like to decrease to 1 mg weekly. He states that he has quit taking metformin. [facility] [address], [place], [address], [facility] 09/01/2024 15:22:47 11/02/2024 text/html Darron Suero i s a 63 year old male patient here today to FU on medications He is struggling with Ozempic 1 mg, would like to decrease dose. Last visit: Has numbness in FREDDY hands and feet. Has to use icTC Ice Cream hot to sleep. We started duloxetine at last visit, he states this is not working and would like to stop taking. He is taking pregabalin 100 mg TID and tramadol 50 mg TID. He states he has attempted to stop taking these but is in severe pain by the evening. Is also taking naproxen, states without it he is having neck pain and migraines. Discussed with patient that Tramadol and Naproxen cannot be taken together, he became upset and states he cannot function without this regime. Advised to start Tylenol 1,000 mg TID and attempt to stop Naproxen. Pt states that he attempted to decrease Naproxen and increase tylenol and had two episodes of dizziness, stopped taking tylenol and went back to the Naproxen and Tramadol. Discussed again that these are both NSAIDs and should not be taken together.States he is finding relief from Painquil (acetaminophen 1,000mg), advised that this is Tylenol and if he is taking this he should only do 2 doses of Tylenol 1,000 mg daily. Today: admits he is taking Tylenol 1,000 mg BID +painquil and cutting Naproxen in half. Admits he did not go to pain management. States pain management was rude to him over the phone and he did not understand what they wanted him to do.Biggest concern is still pain and tingling in FREDDY hands. EMG shows severe carpal tunnel syndrome FREDDY. Darron had FREDDY carpal tunnel release in 2020 and does not want to do it again now. [facility] [address], [place], [address], [facility] 11/02/2024 10:54:22
--- OUTSIDE RECORDS SUMMARY | 2024-12-28 11:39 | XMS_ITS | Clinical Summary ---
Author Organization [facility] Address [address] [place] [address] Care Team Providers Care Presser All Around Name Role Phone Unavailable Primary Care Provider Unavailabl e Encounters Date Type Department Care Team Description 11/16/2024 External Device Data ST[facility] ABSTRACTION Provider, Abstract from Last 3 Months Social History Tobacco Use Types Packs/Day Years Used Date Smoking Tobacco: Never Assessed Sex and Gender Information Value Date Recorded Sex Assigned at Not on file Legal Sex Male 12:39 PM CDT Gender Identity Not on file Sexual Orientation Not on file Plan of Treatment Health Maintenance Due Date Last Done Comments PNEUMOCOCCAL VACCINE 0-49 YEARS (1 of 2 - PCV) 969 DIABETES ANNUAL FOOT EXAM 1980 DIABETES ANNUAL RETINAL EXAM 1980 DIABETES HBA1C Q 6 MONTHS 1980 DIABETES MICROALBUMIN ANNUAL SCREEN 1980 LDL CHOLESTEROL ANNUAL 1980 DTAP/TDAP/TD VACCINES (1 - Tdap) 1981 COLORECTAL SCREENING 2007 Colorectal Cancer Screening 2007 FIT-DNA Q 3 years 2007 FIT/FOBT Q 1 year 2007 Flex Sig/CT Colonography Q 5 years 2007 ZOSTER VACCINE (1 of 2) 2012 INFLUENZA VACCINE (#1) 2024 RSV VACCINE (60+ or ) (1 - 1-dose 75+ series) 2037 Insurance BCBS BLUE ACCESS/TRUE BLUE PPO
== END 2024-12-28 10:14 | disposition home or self-care (01) ==
LOC: ANHSURGERY 10:20
PROVIDERS: Anesthesiology; PCP Family Medicine; Visit Provider Podiatrist Foot & Ankle Surgery
DX: E11.9 Type 2 diabetes mellitus without complications (principal)
CPT/HCPCS: 36415; 80048

== ENCOUNTER 2024-12-31 00:53 | Day surgery (SDC) | payer OTHER, SELFPAY ==
--- NOTE | 2024-12-24 15:26 | PC.NURSE ---
Report to the Outpatient Waiting Room, entrance under the green pavilion located off [facility], at time _10:30 AM on date _12/31/24 . Planned Procedure Time: __12:30 PM .? Time changes happen often and if your time is changed the preop area will call you the afternoon before. - You and your visitor will be asked to self-screen and do not enter if you have any COVID symptoms. Please call surgeon if you need to reschedule. - A mask is optional within the hospital at this time. Patients may have clear liquids (water, carbonated beverages, clear teas, apple juice) until 3 hours prior to surgery ( 9:30 AM)with a maximum of 20 ounces. - No food from midnight until time of surgery and no smoking, or chewing tobacco (or any form of nicotine). No chewing gum, candy or mints. Take only the following medications with a SIP of water on the morning of surgery: _AMLODIPINE,DULOXETINE,PREGABALIN DO NOT STOP ANY OF YOUR OTHER PRESCRIPTION MEDICATIONS PRIOR TO SURGERY EXCEPT THE FOLLOWING Hold all vitamins and supplements for 3 days per anesthesiologist. Medications to discontinue per physician NAPROXEN_PER DR BEASLEY Please no make-up, nail azerbaijani, hairspray, perfume, deodorant, or body powder the day of surgery.? No jewelry (including any body piercings) or valuables the day of surgery, leave them at home.? Please take a shower or bath the night before, or the morning of, surgery with an antibacterial soap.? Wear comfortable, loose fitting clothing.? Children are encouraged to wear pajamas. - Jewelry must be removed prior to entering the operating room.? Rings and piercings that are not removed may be cut off. - The hospital will not accept responsibility for valuables.? - Please leave all valuables, including medications, at home the day of surgery. If you are going home after surgery, a licensed corporate driver must drive you home.? - NO public transportation without another adult if you receive anesthesia. - We recommend that an adult stay with you for 24 hours following discharge. - We also recommend that you do not drive, make important decision, drink alcoholic beverages, or take any drugs that were not prescribed by your health care provider for at least 24 hours after your discharge time. For Pediatric surgeries, we recommend two adults accompany the child home. Follow any additional instructions given to you from your surgeon. Telephone instructions given to ___PATIENT and asked if any additional questions and then verbalized understanding. Patient advised to call surgeon office or pre surgery nurse liaison [phone] if any additional questions.
[2024-12-24 15:42] VITALS: BMI 35.9
--- NOTE | ~2024-12-31 | XR_ITS ---
INTRAOPERATIVE FLUOROSCOPY: CLINICAL HISTORY: 64 years old Male; RIGHT FOOT PROCEDURE COMMENTS: Limited intraoperative fluoroscopy of the right foot was performed. CUMULATIVE DOSE: 0.06 mGy FLUOROSCOPY TIME: 0.1 seconds FINDINGS/IMPRESSION: Please refer to operative note for further details. Reviewed, dictated and finalized at location A.
--- OUTSIDE RECORDS SUMMARY | 2024-12-31 00:56 | XMS_ITS | Referral Summary ---
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
--- OUTSIDE RECORDS SUMMARY | 2024-12-31 00:56 | XMS_ITS | Clinical Summary ---
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
--- OUTSIDE RECORDS SUMMARY | 2024-12-31 00:56 | XMS_ITS | CONTINUITY OF CARE DOCUMENT ---
Author Name ofe ofe Address Unknown Organization [facility] Address [address] [facility] [address] [place] [address] Phone [phone] Care Team Providers Care Microsoft Solutions Architect Name Role Phone EDWIN MOLINA, MICHELL Bob Unavailable SEPIDEH MOLINA, HELLEN Brown Unavailable [phone] INSURANCE PROVIDERS Payer name Policy type / Coverage type [facility] republican ID COVENTRY- OPEN ACCESS/PPO Other [id number]
--- OUTSIDE RECORDS SUMMARY | 2024-12-31 00:56 | XMS_ITS | Clinical Summary ---
Author Organization 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
--- OUTSIDE RECORDS SUMMARY | 2024-12-31 00:56 | XMS_ITS | Data Portability ---
Author Organization [place] [facility], Main Office Address [address] [place] [address] Care Team Providers Care Elevator Tender Name Role Phone MANISH VALENTE Primary Care Provider MANISH VALENTE Referring Provider Assessment No assessment recorded. Plan of Treatment Reminders Order Date Submit Date Provider Last Modified By Organization Details Last Modified Time Details Appointments Any 15 2024 09:00A BASSAM Varner Not available Not available Not available Lab glycohe moglobi n, total, blood 2023 024 [facility] (Lab), [address] [place], [address], 05/05/2024 21:32:02 Referral pain managem ent referra l - Please call patient to nick hassan an appoint ment. Thank you. 2023 024 [email or web address] Interventional Pain Management, 2022 Promise [place], [address], [address], 09/30/2024 08:44:00 Procedures None recorde d. Surgeries None recorde d. Imaging electro myogram + nerve conduct ion study - Please call pt to nick hassan 2023 024 [facility]Emg & Nerve Condution Scheduling, [address], [place], [address], 09/08/2024 16:51:22 Medication Orders Ozempic 0.25 mg or 0.5 mg (2 mg/3 mL) subcuta neous pen injecto r 2024 025 [facility] [address] [place], [address], 11/02/2024 10:07:51 Ozempic 1 mg/dose (4 mg/3 mL) subcuta neous pen injecto r 2023 024 [facility] [address] [facility], [place], [address], 09/01/2024 15:18:16 duloxet ine 60 mg capsule ,delaye d release 2023 024 [facility] [address] [facility], [place], [address], 09/01/2024 15:18:17 acetami nophen 500 mg tablet 2023 024 [facility] [address] [facility], [place], [address], 09/01/2024 14:43:40 Ozempic 2 mg/dose (8 mg/3 mL) subcuta neous pen injecto r 2023 024 [facility] [address] [place], [address], 11/02/2024 09:56:05 cyanoco balamin (vit B-12) 1,000 mcg/mL injecti on solutio n 2023 024 [facility] [address] [place], [address], 05/05/2024 15:48:32 Patient TargetsNo targets recorded. Patient [...] ction study No observ ation record ed. [facility] - Outpatient Physical Therapy Work Condition[facility] [address] [place], [address], 09/09/2024 08:05:44 09/13/20 24 09/08/2024 elect romyo gram + nerve condu ction study No observ ation record ed. [email or web address] [facility] - Outpatient Physical Therapy Work Condition[facility] [address] [place], [address], 09/14/2024 11:43:10 Result Notes None recorded. Problems Name Problem SNOMED Code Status Onset Date Resolution Date Notes Provider Name and Address Organization Details Recorded Time Pain of left shoulder joint 5459717998086 9109 Active 2021 Not Available [facility] 3 05:29:41 Plantar fasciitis 693443974 Active Not Available [facility] 3 05:29:41 Osteoarthr itis of knee 753624594 Active Not Available [facility] 3 05:29:41 Cervical spondylosi s without myelopathy 371464166 Active Not Available [facility] 3 05:29:41 Hypertensi ve disorder 18282649 Active Not Available [facility] 3 05:29:41 Hyperlipid emia 60799427 Active Not Available [facility] 3 05:29:41 Essential hypertensi on 35050716 Active Not Available [facility] 3 05:29:41 Pernicious anemia 80003459 Active Not Available [facility] 3 05:29:41 Partial thickness rotator cuff tear 947089340 Active 2022 Not Available [facility] 3 05:29:41 Full thickness rotator cuff tear 902839568 Active 2022 Not Available [facility] 3 05:29:41 Type 2 diabetes mellitus without complicati on 664452863 Active 2022 Not Available [facility] 3 05:29:41 Chronic low back pain 480460980 Active 2022 Not Available [facility] 3 05:29:41 Vitamin B12 deficiency (non anemic) 54342137 Active 2022 Not Available [facility] 3 05:29:41 Obese 463677142 Active 2023 ROSIE Lerma [address], [address], [place], [address] , [facility]ku [facility] 4 12:27:08 Screening for malignant neoplasm of prostate Active 2023 ROSIE Lerma [address], [address], [place], [address] , [facility]ku [facility] [employer] [facility] 4 12:12:33 Spinal stenosis in cervical region 43864820 Active 2023 BASSAM Hood [address], [address], [place], [address] , haku [facility] [employer] [facility] 4 15:27:55 Blister of foot without infection 0653885 Active 2023 BASSAM Hood [address], [address], [place], [address] , [facility] 4 15:33:09 Neuropathy 848090673 Active 2023 BASSAM Hood [address], [address], [place], [address] , [facility] 4 17:11:26 Degenerati on of cervical interverte bral disc 07942934 Active 2023 BASSAM Hood [address], [address], [place], [address] , [facility] 4 15:47:04 Disorder of vitamin B12 595656961 Active 2023 BASSAM Hood [address], [address], [place], [address] , [facility] [employer] [facility] 4 15:48:01 Bilateral carpal tunnel syndrome 9840437875762 9101 Active 2023 BASSAM Hood [address], [facility] [address], [place], [address] , [facility] [employer] [facility] 4 17:05:34 Problem Notes None recorded. Procedures Surgical History Date Name Laterality Status Provider Name and Address Organization Details Recorded Time cholecystectomy completed Yoly Reese RN [facility] [employer] [facility] 02/09/2024 15:16:38 arthroplasty of left shoulder completed Yoly Reese RN [facility] [employer] [facility] 02/09/2024 15:16:49 Imaging Results Imaging Date Name Status LastModified by Organization Details LastModified Time 09/08/2024 electromyogram + nerve conduction study completed [email or web address] [place] [address] Outpatient Physical Therapy Work Conditioning [address] [place] [address], [address], 09/09/2024 08:05:44 09/08/2024 electromyogram + nerve conduction study completed [facility] Physical Therapy Work Conditioning [address] [place] [address], [address], 09/14/2024 11:43:10 Procedure Notes None recorded. Medical Equipment None Reported. Allergies Allergen ID Allergen Name Allergen Category Reaction Reaction Severity Criticality Documentation Date Start Date Code Code System Note Provider Name and Address Organization Details Recorded Time 43932 niacin medicatio n Not available Not available Not available 12/18/2022 7393 RxNorm Not Available [facility] 3 06:00:27 60153 aluminum aspirin Not available hives Not available Not available 12/18/20222021 611 RxNorm Not Available [facility] 3 06:00:27 25463 Easprin medicatio n Not available Not available Not available 12/18/202278331 4 RxNorm Not Available [facility] 3 06:00:27 Medications Name Sig Start Date [...] 6 TO 8 HOURS NEEDED FOR PAIN 2024 active Not Available Not Available Not Avai lable acetaminoph en 500 mg tablet Take 2 [...] Details Last Updated DateTime 4 182.88 cm 34.9 kg/m2 430897. 59 g 98.2 [degF] 90 /min 97 % 97 % 154 mm[Hg] 86 mm[Hg] Maurice Hdz [facility] 15:20:47 Date Recorded Respiratory rate Provider Name a nd Address Organization Details Last Updated DateTime 05/05/2024 20 /min Kevin Devine [address] [place] [address], [place] [address], [place], [address], [facility] 05/05/2024 15:27:36 Date Recorded Body height Provider Name an d Address Organization Details Last Updated DateTime 05/05/2024 182.88 cm Yoly Reese RN [facility] [employer] [facility] 05/05/2024 17:03:49 Date Recorded Body height Body mass index (BMI) Body weight Body temperature Heart rate Respiratory rate Oxygen saturation Oxygen saturation in Arterial blood by Pulse oximetry Pain severity - 0-10 verbal numeric rating [Score] - Reported Systolic blood pressure Diastolic blood pressure Provider Name and Address Organization Details Last Updated DateTime 4 182.88 cm 33.1 kg/m2 526955. 59 g 97.2 [degF] 91 /min 24 /min 98 % 98 % 3 136 mm[Hg] 76 mm[Hg] Yoly Reese RN [facility] [employer] [facility] 4 14:11:45 Date Recorded Body height Body mass index (BMI) Body weight Body temperature Heart rate Respiratory rate Oxygen saturation Oxygen saturation in Arterial blood by Pulse oximetry Pain severity - 0-10 verbal numeric rating [Score] - Reported Systolic blood pressure Diastolic blood pressure Provider Name and Address Organization Details Last Updated DateTime 4 182.88 cm 34 kg/m2 095647. 68 g 97.2 [degF] 75 /min 20 /min 98 % 98 % 4 164 mm[Hg] 84 mm[Hg] Yoly Reese RN [facility] [employer] 4 14:46:59 Date Recorded Body height Body mass index (BMI) Body weight Body temperature Heart rate Respiratory rate Oxygen saturation Oxygen saturation in Arterial blood by Pulse oximetry Pain severity - 0-10 verbal numeric rating [Score] - Reported Systolic blood pressure Diastolic blood pressure Provider Name and Address Organization Details Last Updated DateTime 5 182.88 cm 35.6 kg/m2 715082 g 97.2 [degF] 105 /min 24 /min 97 % 97 % 0 178 mm[Hg] 90 mm[Hg] Yoly Reese RN [facility] [employer] [facility] 5 09:47:40 Social History Question Answer Notes LastModified by Organizat ion Details LastModified Time Tobacco Smoking Status Unknown If Ever Smoked Carolin yanez [facility] 03/25/2023 09:52:50 Do You Have An Advance Directive? No Information not available 02/09/2024 What Is Your Level Of Alcohol Consumption? 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 No Information not available 02/09/2024 Where Do You Live? SingleLevelHouse Information not available 02/09/2024 Do You Have A Medical Power Of Administrative Office Assistant? No Information not available 02/09/2024 What Was The Date Of Your Most Recent Tobacco Screening? 08/15/2022 [email or web address] Information not available 03/25/2023 Do You Have Any Pets? Yes Information not available 02/09/2024 What Is Your Relationship Status? [email or web address] Information not available 01/15/2024 Do You Use [...] Anxious, Or Unable To Sleep At Night)? [id number] Information not available 09/01/2024 Have You Recently [...] Vaccine Type Date Status Note Provider Nam e and Address Organization Details Recorded Time COVID-19, mRNA, LNP-S, PF, 100 mcg/0.5mL dose or 50 mcg/0.25mL dose 02/09/202 1 completed BASSAM Hood [address], [address], [place], [address], [employer]ku [employer] [facility] 02/09/2024 15:35:52 COVID-19, mRNA, LNP-S, PF, 100 mcg/0.5mL dose or 50 mcg/0.25mL dose 1 completed BASSAM Hood [address], [address], [place], [address], [employer] [facility] 02/09/2024 15:35:52 COVID-19, mRNA, LNP-S, PF, 30 mcg/0.3 mL dose 2 completed BASSAM Hood [address], [address], [place], [address], [employer]ku [employer] [facility] 02/09/2024 15:35:52 Td (adult), 2 Lf tetanus toxoid, preservative free, adsorbed 4 completed Yoly Reese RN [facility] [employer] [facility] 02/09/2024 16:11:51 Past Encounters Encounter ID Performer Location Encounter Start Date Encounter Closed Date Diagnosis/Indication Diagnosis SNOMED-CT Code Diagnosis ICD10 Code Diagnosis Note [id number] [facility] [place] [address] [place] [address] 06/06/2022 00:00:00 06/07/2022 06:35:04 [id number] [facility] [address] [place] [address] 07/04/2022 00:00:00 07/05/2022 06:11:29 [id number] [facility] [address] [place] [address] 08/15/2022 00:00:00 08/15/2022 13:18:21 [id number] [facility] [address] [place] [address] 08/23/2022 00:00:00 08/23/2022 11:52:56 [id number] [facility] [address] [place] [address] 08/27/2022 00:00:00 08/27/2022 12:10:22 [id number] [facility] [address] [place] [address] 10/08/2022 00:00:00 10/08/2022 10:43:10 [id number] [facility] [address] [place] [address] 10/15/2022 00:00:00 10/15/2022 10:22:13 [id number] [facility] [address] [place] [address] 11/05/2022 00:00:00 11/05/2022 12:14:58 [id number] [facility] [address] [place] [address] 12/17/2022 00:00:00 12/17/2022 12:47:31 [id number] Salomon Vital MD [facility] [address] [place] [address] 01/14/2023 09:51:29 01/14/2023 10:38:21 Partial thickness rotator cuff tear 207836325 M75.102 Full thick ness rotator cuff tear 813891027 M75.122 patient can continue with strengthen ing [...] concerning his cervical nerve root impingemen t [id number] Manish Nj MD [facility] Ivon pereyra [address] [place] [address] 03/06/2023 14:03:53 03/06/2023 14:50:56 Uncontrolled type 2 diabetes mellitus 898699848 E11.65 A1C is 8.1% will start ozempic F/u in 3 months Chronic neck pain 015824 3602 107 M54.2 tramadol sent to [facility]. [id number] ROSIE Oswald [facility] [address] [place] [address] 03/25/2023 09:51:39 03/25/2023 10:31:26 Pain of left shoulder joint 7399193261 7600730 M25.512 [id number] Manish Nj MD [facility] [address] [place] [facility] [place] [address] 06/12/2023 16:14:11 06/12/2023 16:51:18 Type 2 diabetes mellitus without complication 050044113 E11.9 Hyperlipidemia 64579618 E78.5 Bereavement 11640031 Z63 .4 Suggest counseling for grief Vitamin B1 2 deficiency (non anemic) 44264570 E53.8 Chronic neck pain 069083 9103 107 M54.2 tramadol sent to [facility] [id number] ROSIE Lerma [facility] [place] [address] [facility] [place] [address] 12/11/2023 12:13:11 12/11/2023 12:34:14 Obese 017550436 E66.9 Shoulder joint pain 2679 27432 M25.519 left [id number] ROSIE Lerma [facility] [address] [place] [address] [facility] [place] [address] 01/15/2024 11:46:21 01/15/2024 12:14:34 Arthritis 7003463 M19.90 Chronic low back pain 27 1948446 M54.50 Essential hypertension 32823101 I10 Full thick ness rotator cuff tear 020519663 M75.122 Hyperlipidemia 25330454 E78.5 Osteoarthritis 405187199 M19.90 Pernicious anemia 119100 09 D51.0 Type 2 hoang betes mellitus without complication 385465721 E11.9 Screening for malignant neoplasm of prostate 021400682 Z12.5 Vitamin B1 2 deficiency (non anemic) 83878620 E53.8 [id number] ROSIE Lerma [facility] [address] [place] [address] 01/28/2024 14:36:22 01/30/2024 04:10:39 [id number] Ita Salas [address] [address] 02/09/2024 15:03:37 02/09/2024 15:58:18 Spinal stenosis in cervical region 70391749 M48.02 Blister of foot without infection 8803014 S90.821A Administra tion of diphtheria, pertussis, and tetanus vaccine 612303349 Z23 Essential hypertension 89237850 I10 [id number] Ita Salas [address] [address] 03/23/2024 16:12:14 03/23/2024 17:28:48 Chronic neck pain 2337687104 107 M54.2 Neuropathy 673933797 G62 .9 [id number] Ita Salas [address] [address] 05/05/2024 15:11:49 05/06/2024 08:11:02 Type 2 diabetes mellitus without complication 552578696 E11.9 Degenerati on of cervical intervertebral disc 05736833 M50.30 Sees neuro, not interested in pain management . Will consider pain management in the future Disorder o f vitamin B12 930207297 E53.8 [id number] Ita Salas [address] [address] 05/05/2024 15:58:56 05/05/2024 15:59:51 [id number] Ita Salas [address] [address] 06/29/2024 13:57:11 06/29/2024 14:46:13 Spinal stenosis in cervical region 13965532 M48.02 Patient will see pain management after he retires in ll add tylenol 1,000 mg PO TIDAdvised to stop Naproxen [id number] BASSAM Hood [facility] [address] 09/01/2024 14:33:22 09/01/2024 15:25:45 Degeneration of cervical intervertebral disc 54246929 M50.30 Sees neuro, not interested in pain management . Will consider pain management in the future Pain management education discussed today. Neuropathy 044621832 G62 .9 Numbness, burning, and loss of strength in FREDDY hands Type 2 hoang betes mellitus without complication 360071194 E11.9 Patient unable to tolerate 2 mg Ozempic [id number] BASSAM Hood [facility] [address] 11/02/2024 09:29:34 11/03/2024 10:35:16 Type 2 diabetes mellitus without complication 053723844 E11.9 Patient unable to tolerate 1 mg OzempicHe is not taking Jardiance anymore Bilateral carpal tunnel syndrome 9358602848 5095684 G56.03 Patient states he does not want surgery, will wait it out until he cannot stand it anymore.I ordered cock-up splints but he does not want to use them. Degenerati on of cervical intervertebral disc 32758025 M50.30 Having severe pain with radiculopa thy. [...] ID Guarantor Name 05/05/2024 1 [place] [id number] Darron Suero [id number] Darron Suero 05/05/2024 1 [place] [id number] Darron Suero [id number] Darron Suero 06/29/2024 1 [place] [id number] Darron Suero [id number] Darron Suero 09/01/2024 1 [place] [id number] Darron Suero [id number] Darron Suero 11/02/2024 1 [place] [id number] Darron Suero [id number] Darron Suero Notes Date Note Type Note [...] see if helping blood sugars. Ita Salas, [facility] [address] [facility], [facility] [address], [place], [address], [place] [facility] 05/06/2024 08:11:00 06/29/2024 text/html Darron Suero is [...] not refill. Last A1C 5.8. Ita Salas, BUTTON SEWING MACHINE OPERATOR [address] [facility], [facility] [address], [place], [address], [facility] 06/29/2024 14:45:04 09/01/2024 text/html Darorn Suero is a 63 year old male [...] taking metformin. BASSAM Hood [address], [place], [address], [place] [facility] 09/01/2024 15:22:47 11/02/2024 text/html Darron Suero i s a 63 year old male patient here today to FU on medications He is struggling with Ozempic 1 mg, would like to decrease dose. Last visit: Has numbness in FREDDY hands and feet. Has to use [facility] hot to sleep. We started duloxetine at [...] again now. BASSAM Hood [address], [place], [address], [place] [facility] 11/02/2024 10:54:22
--- OUTSIDE RECORDS SUMMARY | 2024-12-31 00:56 | XMS_ITS | Clinical Summary ---
Author Organization Radha Garg Address [address] [place] [address] Care Team Providers Care Maxillofacial Prosthetics Dentist Name Role Phone Unavailable Primary Care Provider [...]
--- NOTE | 2024-12-31 07:18 | WPDHPUPDATE1 ---
History and Physical Update Update Date/Time: 12/31/24 07:18 History and Physical has been reviewed, including an updated exam of the patient. There are NO changes in the patient's condition. Risks, benefits, and alternatives have been discussed and questions answered. Patient agrees to proceed with procedure.
[2024-12-31 11:07] LABS: Glucose Point of Care 143 mg/dl (65-105)
[2024-12-31 11:11] VITALS: BP 160/75; PULSE 85; RESP 16; TEMP 36.8; O2SAT 99
--- NOTE | 2024-12-31 12:43 | P.PNAN_ITS ---
Anes - Initial Pre Proc Eval Procedure: Operation Date: 12/31/24 12:30 Proposed Procedures p Fifth Metatarsal Osteotomy Right Foot - Juan Cano Jr., DPM Date/Time: 12/31/24 12:43 Surgeon: Juan Cano Jr., DPM Pre Op Diagnosis: Chronic Ulcer Rght Foot Patient Data Age: 64 Gender: M Height: 1.83 m Weight: 118.6 kg Last Vital Signs Temp 98.2 F 12/31/24 11:11 Pulse 85 12/31/24 11:11 Resp 16 12/31/24 11:11 BP 160/75 H 12/31/24 11:11 Pulse Ox 99 12/31/24 11:11 O2 Del Method Room Air 12/31/24 11:11 Allergies Allergy/AdvReac Type Severity Reaction Status Date / Time aspirin Allergy Unknown RASH Verified 12/24/24 15:20 peanut Allergy Unknown RASH Verified 12/24/24 15:20 soybean Allergy Unknown RASH Verified 12/24/24 15:20 Scallop Allergy Unknown RASH Uncoded 12/24/24 15:20 Shrimp Allergy Unknown RASH Uncoded 12/24/24 15:20 Home Medications ?Medication ?Instructions ?Recorded ?Confirmed ?Type amlodipine 5 mg tablet 5 mg PO DAILY 10/22/22 12/31/24 History empagliflozin 25 mg tablet 25 mg PO DAILY 10/22/22 12/24/24 History (Jardiance) icosapent ethyl 1 gram capsule 2 g PO BID 10/22/22 12/24/24 History lisinopril 20 2 tablet PO DAILY 10/22/22 12/31/24 History mg-hydrochlorothiazide 12.5 mg tablet metformin 500 mg tablet,extended 1,000 mg PO BID 10/22/22 12/24/24 History release 24hr (osmotic) tramadol 50 mg tablet 50 - 100 mg PO Q6H PRN pain 10/22/22 12/24/24 History cyanocobalamin (vitamin B-12) 1,000 mcg IM MONTHLY 12/24/24 12/24/24 History 1,000 mcg/mL injection solution duloxetine 60 mg capsule,delayed 60 mg PO DAILY 12/24/24 12/31/24 History release naproxen 500 mg tablet 500 mg PO Q12H 12/24/24 12/31/24 History pregabalin 100 mg capsule 100 mg PO Q8H 12/24/24 12/31/24 History semaglutide 0.25 mg or 0.5 mg (2 0.5 mg subcut WEEKLY 12/24/24 12/31/24 History mg/3 mL) subcutaneous pen injector (Ozempic) Laboratory Tests 12/31/24 11:04 POC Capillary Glucose 143 H mg/dl (65-105) Patient hx anesthesia problems: none Family hx anesthesia problems: none Results Review: All pre-operative results and documents have been reviewed as part of the pre- operative evaluation. [facility] Past Medical History Medical History (Updated 10/22/22 @ 15:12 by Checo Vásquez APRN) Diabetes H/O asbestos exposure Peripheral neuropathy Cervical spondylosis Osteoarthritis Chronic pain HTN (hypertension) Pernicious anemia HLD (hyperlipidemia) Social History Social History Smoking packs per day: 1 Smoking cigarettes per day: 20.0 Years smoked: 20 Smoking pack-years: 20.00 Smoking status: Former smoker Tobacco type: cigarettes Smoking end date: 10/20/92 Living arrangements: alone Spiritual care concerns: No Anes - Eval Final PreProcedure Day of Procedure 12/31/24 12:43 Patient weight: obese Heart: regular rate and rhythm Lungs: clear to auscultation Airway: Mallampati scale class II Neurological: alert and oriented Last oral intake: >/= 8 hours ASA classification: III Emergent: no Anesthetic plan: proceed Anesthesia type and monitoring: general GIVS and standard monitoring Results Review: All pre-operative results and documents have been reviewed as part of the pre- operative evaluation. Informed Consent: The patient's anesthetic plan and its attendant risks and benefits were discussed with the patient/family/POA. Questions were solicited and answers provided to the satisfaction of the patient/family/POA.
--- NOTE | 2024-12-31 13:35 | W.PM.PROC2 ---
Procedure Note - Detailed Date of Procedure 12/31/24 Pre-op Diagnosis Chronic Ulcer Right Foot Post-op Diagnosis Same Procedure Performed 5th metatarsal elevational osteotomy right foot Surgeon Juan Cano Jr., DPM Anesthesia MAC and Local Indications Chronic ulcer right foot with a prominent 5th metatarsal head Description of Procedure Under mild sedation, the patient was brought in to the operating room, placed on the operating table in the supine position. A pneumatic ankle tourniquet was placed about the patient's leg. Following monitored anesthesia care, local anesthesia was obtained about the patients ankle utilizing 20 mL of a 1:1 mixture of 2% Lidocaine plain and 0.5% Marcaine plain. The foot was then scrubbed, prepped, and draped in the usual aseptic manner. An Esmarch bandage was then used to exsanguinate the patient's foot and the pneumatic ankle tourniquet was then inflated. Attention was directed to the dorsal lateral aspect of the fifth metatarsal head where a 3 cm incision was made just lateral to the extensor digitorum longus tendon to the fifth digit to the shaft of the fifth metatarsal. The incision was continued deep down through the subcutaneous tissues using sharp and blunt dissection. All bleeders were cauterized as necessary.A full-length periosteal incision was made overlying the fifth metatarsal distally. A McGlamry Elevator was used to free the plantar structures to the fifth metatarsal head. Fluoroscopy was used to confirm the osteotomy location. Next, a sagittal bone saw was used to make a transverse osteotomy at the distal metaphyseal diaphyseal junction of the fifth metatarsal. The fifth metatarsal was noted to float into a dorsal and medial position. Next, the periosteum and capsular structures overlying the 5th metatarsophalangeal joints were reapproximated with 3-0 Vicryl. Next, subcutaneous structures were reapproximated and coapted utilizing 4-0 Vicryl. Next, the skin was reapproximated and coapted utilizing 4-0 Monocryl in running subcuticular suture fashion technique. Upon completion of the procedure, the incision was dressed with Adaptic, 4 x 4's, Kerlix, and Coban. The pneumatic ankle tourniquet was then deflated and a prompt hyperemic response noted to all digits of the foot. A surgical shoe was then applied. The patient did very well with the procedure and the anesthesia. The patient was transferred to the recovery room with vital signs stable and vascular status intact to all toes of the affected foot. Following a period of postoperative monitoring, the patient will be discharged home on the following written and oral postoperative instructions: 1. Keep the dressing clean, dry, and intact. Use a cast protector bag with showers. 2. The patient should use a surgical shoe for ambulation postoperatively. 3. The patient should be on bedrest with bathroom privileges and elevate the affected foot when at rest. 4. The patient to contact Dr. Cano for all postop care and if any problems arise. 5. The patient will take Tramadol 50mg to be taken post operatively. 6. Take one Aspirin 325mg every 24hours for two weeks post operatively. Estimated Blood Loss 1 Drains No Packing No Pathology None sent Complications No immediate complications Condition Stable Disposition Same day
[2024-12-31 13:40] VITALS: BP 109/65; PULSE 83; RESP 14; O2SAT 99
[2024-12-31] MEDS: LACTATED RINGERS 1,000 ML 30 ML IV CONT (13:40)
[2024-12-31 14:08] LABS: Glucose Point of Care 121 mg/dl (65-105)
[2024-12-31 14:10] VITALS: BP 130/87; PULSE 90; RESP 16
== END 2024-12-31 14:34 | disposition home or self-care (01) ==
PROVIDERS: PCP Family Medicine; Visit Provider Podiatrist Foot & Ankle Surgery
PROC: (CPT 28750; principal; 2024-12-31 12:30)
DX: E11.621 Type 2 diabetes mellitus with foot ulcer (principal); L97.519 Non-pressure chronic ulcer of other part of right foot with unspecified severity; E11.42 Type 2 diabetes mellitus with diabetic polyneuropathy; I10 Essential (primary) hypertension; E78.5 Hyperlipidemia, unspecified; Z87.891 Personal history of nicotine dependence; E66.9 Obesity, unspecified; Z68.35 Body mass index [BMI] 35.0-35.9, adult; Z79.84 Long term (current) use of oral hypoglycemic drugs; Z79.85 Long-term (current) use of injectable non-insulin antidiabetic drugs
CPT/HCPCS: 28308; 82948; 99199; J1100; J2003; J2250; J2405; J2704; J3010; J7120

== ENCOUNTER 2025-03-01 14:47 | Inpatient (IN) | payer OTHER, SELFPAY ==
--- NOTE | ~2025-03-01 | XR_ITS ---
EXAMINATION: XR foot RT min 3V DATE: 03/01/2025 14:06 INDICATION: Diabetic ulcer TECHNIQUE: Dorsoplantar, two oblique and lateral views of the right foot were obtained. COMPARISON: None. FINDINGS: Increased now one third shaft widths medial displacement of an osteotomy extending across the distal diaphysis of the fifth metatarsal. There is ostial lysis along both sides of the osteotomy along with some periosteal reaction extending along the more proximal diaphysis consistent with osteomyelitis. There is some overlying focal soft tissue swelling at the lateral forefoot. Likely fixation of an old medial malleolar fracture with a pair of cannulated lag screws. No acute fractures identified. Mild polyarticular osteoarthritis at multiple joints throughout the right foot. Moderate-sized Achilles an d plantar calcaneal spurs. IMPRESSION: 1. Increased displacement with new osteolysis periosteal reaction at a transverse osteotomy at the fi fth metatarsal diaphysis which is concerning for osteomyelitis. Reviewed, dictated and finalized at location A. IMPRESSION: 1. Increased displacement with new osteolysis periosteal reaction at a transver se osteotomy at the fifth metatarsal diaphysis which is concerning for osteomye litis.
--- NOTE | ~2025-03-01 | MR_ITS ---
MRI of the right foot CLINICAL HISTORY: Diabetic foot infection TECHNIQUE: Coronal T1-weighted and T2 fat-sat images, axial T1-weighted and T2 fat-sat images, and sa gittal T1-weighted and STIR images were acquired. Following intravenous administration of 20 cc ProHa nce gadolinium, T1-weighted fat-sat imaging was performed in the axial, coronal, and sagittal planes. FINDINGS: There is osteotomy at the distal fifth metatarsal shaft with medial displacement by one ful l shaft width of the distal fifth metatarsal head/neck. There is marrow edema of the fifth metatarsal shaft and head. There is minimal amorphous T1 hypointensity in the fifth metatarsal shaft and fifth metatarsal neck, with postoperative debris about the osteotomy site. There is soft tissue swelling an d edema about the osteotomy site. Remaining osseous structures are intact. Joint spaces are preserved. Flexor and extensor tendons are intact. There is minimal amorphous edema in the intrinsic plantar mus culature of the abdomen. Plantar fascia intact. IMPRESSION: Displaced osteotomy of the distal fifth metatarsal neck/shaft with surrounding soft tissue edema and postsurgical debris. Findings all appear to be most likely postoperative in nature. Early osteomyelit is is not definitively excluded. Correlate clinically. Reviewed, dictated and finalized at [facility]. IMPRESSION: Displaced osteotomy of the distal fifth metatarsal neck/shaft with surrounding soft tissue edema and postsurgical debris. Findings all appear to be most likel y postoperative in nature. Early osteomyelitis is not definitively excluded. Co rrelate clinically.
--- OUTSIDE RECORDS SUMMARY | 2025-03-01 10:34 | XMS_ITS | Data Portability ---
Author Organization [facility] [employer], Main Office Address [address] [place] [address] Assessment No assessment recorded. Plan of Treatment Reminders Order Date Submit Date Provider Last Modified By Organization Details Last Modified Time Details Appointments None recorded. Lab CBC w/ auto diff 2024 025 [email or web address] [facility] (Lab), [address] [place], [address], 5 08:17:29 TSH, serum or plasma [address] [facility] (Lab), [address] [place], [address], 5 10:21:21 CMP, serum or plasma [address] [facility] (Lab), [address] [place], [address], 10:21:20 glycohemo globin, total, blood [address] [facility] (Lab), [address] [place], [address], 5 10:21:21 ANGELA (antinucl ear antibodie s) screen, serum [address] [facility] (Lab), [address] [place], [address], 5 18:34:08 rf (rheumato id factor), serum 2024 025 [facility] (Lab), [address] [facility] [place], [address], 5 08:17:29 Referral pain managemen t referral - Please call patient to schedule an appointme nt. Thank you. 2023 024 [email or web address] Interventional Pain Management, 2022 Promise [place], [address], [address], 4 08:44:00 Procedures None recorded. Surgeries None recorded. Imaging electromy ogram + nerve conductio n study - Please call pt to schedule 2023 024 [facility], operated by [facility] Scheduling, [address] , [place], [address], 4 16:51:22 Medication Orders hydrocodo ne 5 mg-acetam inophen 325 mg tablet 2024 025 [facility] [place], [address], 5 15:08:17 Mounjaro 2.5 mg/0.5 mL subcutane ous pen injector [email or web address] [facility] [address] [place], [address], 5 09:53:22 Ozempic 0.25 mg or 0.5 mg (2 mg/3 mL) subcutane ous pen injector 2024 025 [facility] [address], [address] [place], [address], 5 10:07:51 Ozempic 1 mg/dose (4 mg/3 mL) subcutane ous pen injector 2023 024 [facility] [address], [address] [place], [address], 14:39:19 duloxetin e 60 mg capsule,d elayed release 2023 024 [facility] [address], [address] [place], [address], 15:18:17 acetamino phen 500 mg tablet [address] [facility] [address], [address] [place], [address], 14:43:40 Patient TargetsNo targets recorded. Patient InstructionsNo instructions [...] ction study No observ ation record ed. [address] - Outpatient Physical Therapy Work Conditioning [address] [place] [address], [address], 09/09/2024 08:05:44 09/13/20 24 09/08/2024 elect romyo gram + nerve condu ction study No observ ation record ed. [facility] - Outpatient Physical Therapy Work Conditioning [address] [place], [address], 09/14/2024 11:43:10 01/01/20 25 12/31/2024 fluor oscop y (PROC ) No observ ation record ed. [address] [place] [address], [address], 01/03/2025 11:05:20 Result Notes None recorded. Problems Name Problem SNOMED Code Status Onset Date Resolution Date Notes Provider Name and Address Organization Details Recorded Time Pain of left shoulder joint 4465532931660 9109 Active 2021 Not Available [facility] 3 05:29:41 Plantar fasciitis 825967237 Active Not Available [facility] 3 05:29:41 Osteoarthr itis of knee 932479706 Active Not Available [facility] 3 05:29:41 Cervical spondylosi s without myelopathy 853823381 Active Not Available [facility] 3 05:29:41 Hypertensi ve disorder 48017470 Active Not Available [facility] 3 05:29:41 Hyperlipid emia 70821844 Active Not Available [facility] 3 05:29:41 Essential hypertensi on 65782345 Active Not Available [facility] 3 05:29:41 Pernicious anemia 18966834 Active Not Available [facility] 3 05:29:41 Partial thickness rotator cuff tear 281179230 Active 2022 Not Available [facility] 3 05:29:41 Full thickness rotator cuff tear 972880630 Active 2022 Not Available [facility] 3 05:29:41 Type 2 diabetes mellitus without complicati on 725372263 Active 2022 Not Available [facility] 3 05:29:41 Chronic low back pain 396216830 Active 2022 Not Available [facility] 3 05:29:41 Vitamin B12 deficiency (non anemic) 02144493 Active 2022 Not Available [facility] 3 05:29:41 Obese 009992374 Active 2023 ROSIE Lerma [address], [place], [address] , [place] [employer] [facility] 4 12:27:08 Screening for malignant neoplasm of prostate Active 2023 ROSIE Lerma [address], [place], [address] , [facility] [employer] [facility] 4 12:12:33 Spinal stenosis in cervical region 52748099 Active 2023 BASSAM Hood [address], [address], [place], [address] , [facility] 4 15:27:55 Blister of foot without infection 5408839 Active 2023 BASSAM Hood [address], [address], [place], [address] , [facility] [employer] [facility] 4 15:33:09 Neuropathy 717952756 Active 2023 BASSAM Hood [address], [place], [address] , [facility] [employer] [facility] 4 17:11:26 Degenerati on of cervical interverte bral disc 82592600 Active 2023 BASSAM Hood [address], [place], [address] , [facility] [employer] [facility] 4 15:47:04 Disorder of vitamin B12 649260098 Active 2023 BASSAM Hood [address], [place], [address] , [facility] [employer] [facility] 4 15:48:01 Bilateral carpal tunnel syndrome 2590087346019 9101 Active [address], [place], [address] , [facility] [employer] [facility] 4 17:05:34 Polyarthro cj 39334009 Active [address], [place], [address] , [facility] [employer] [facility] 5 15:22:32 Problem Notes None recorded. Procedures Surgical History Date Name Laterality Status Provider Name and Address Organization Details Recorded Time cholecystectomy completed LETITIA Shelby [facility] 02/09/2024 15:16:38 arthroplasty of left shoulder completed Yoly Reese RN [facility] 02/09/2024 15:16:49 Imaging Results Imaging Date Name Status LastModified by Organization Details LastModified Time 09/08/2024 electromyogram + nerve conduction study completed [address] Outpatient Physical Therapy Work [facility]ing [address] [place] [address], [address], 09/09/2024 08:05:44 09/08/2024 electromyogram + nerve conduction study completed [facility] Outpatient Physical Therapy Work [facility]ing [address] [place] [address], [address], 09/14/2024 11:43:10 12/31/2024 fluoroscopy (PROC) completed [address], [address], 01/03/2025 11:05:20 Procedure Notes None recorded. Medical Equipment None Reported. Allergies Allergen ID Allergen Name Allergen Category Reaction Reaction Severity Criticality Documentation Date Start Date Code Code System Note Provider Name and Address Organization Details Recorded Time 43086 niacin medicatio n Not available Not available Not available 12/18/2022 7393 RxNorm Not Available [facility] 3 06:00:27 99703 aluminum aspirin Not available hives Not available Not available 12/18/20222021 611 RxNorm Not Available [facility] 3 06:00:27 12388 Easprin medicatio n Not available Not available Not available 12/18/202275117 4 RxNorm Not Available [facility] 3 06:00:27 Medications Name Sig Start Date [...] (disposable ) 1 mL use to administe lucie patelcoba brandy once a month 03/09 completed Not [...] lisinopril 20 mg-hydrochl orothiazide 12.5 mg tablet TAKE 2 TABLETS BY MOUTH ONCE DAILY active Not Available Not Available No t Available azithromyci n 250 mg tablet Take 2 [...] hydrocodone 5 mg-acetamin ophen 325 mg tablet TAKE 1 TABLET BY MOUTH TWICE DAILY NEEDED FOR SEVERE PAIN FOR 30 DAYS active Not Available Not Available No t Available meloxicam 15 mg tablet Take 1 [...] completed Not Available Not Available Not Available doxycycline hyclate 100 mg tablet TAKE 1 TABLET BY MOUTH TWICE DAILY UNTIL GONE active Not Available Not Available No t Available naproxen 500 mg tablet TAKE 1 TABLET BY MOUTH TWICE DAILY active Not Available Not Available No [...] 1 CAPSULE BY MOUTH ONCE DAILY DIRECTED 2024 active Not Available Not Available Not Avai lable pregabalin 100 mg capsule TAKE 1 CAPSULE [...] (4 mg/3 mL) subcutaneou s pen injector Inject 1 mg every week by subcutane ous route as directed for 28 days. 01/21 completed Not Available Not Available Not Available Ozempic 2 mg/dose (8 mg/3 mL) subcutaneou s pen injector INJECT 2MG SUBCUTANE OUSLY ONCE WEEKLY 11/02 completed Not Available Not Available Not Available Mounjaro 2.5 mg/0.5 mL subcutaneou s pen injector INJECT 1 PEN SUBCUTANE OUSLY ONCE A WEEK active Not Available Not Available No t Available Ozempic 0.25 mg or 0.5 mg (2 mg/3 mL) subcutaneou s pen injector Inject by subcutane ous route for 28 days. active Not Available Not Available No t Available Vitals Date Recorded Body height Body mass index (BMI) Body weight Body temperature Heart rate Oxygen saturation Oxygen saturation in Arterial blood by Pulse oximetry Systolic blood pressure Diastolic blood pressure Provider Name and Address Organization Details Last Updated DateTime 182.88 cm 34.9 kg/m2 339662. 59 g 98.2 [degF] 90 /min 97 % 97 % 154 mm[Hg] 86 mm[Hg] Maurice Hdz [facility] [employer] 15:20:47 Date Recorded Respiratory rate Provider Name a nd Address Organization Details Last Updated DateTime 05/05/2024 20 /min Kevin Devine [address] [place] [address], [address], [address], [facility] [employer] 05/05/2024 15:27:36 Date Recorded Body height Provider Name an d Address Organization Details Last Updated DateTime 05/05/2024 182.88 cm Yoly Reese RN [facility] [employer] 05/05/2024 17:03:49 Date Recorded Body height Body mass index (BMI) Body weight Body temperature Heart rate Respiratory rate Oxygen saturation Oxygen saturation in Arterial blood by Pulse oximetry Pain severity - 0-10 verbal numeric rating [Score] - Reported Systolic blood pressure Diastolic blood pressure Provider Name and Address Organization Details Last Updated DateTime 182.88 cm 33.1 kg/m2 867193. 59 g 97.2 [degF] 91 /min 24 /min 98 % 98 % 3 136 mm[Hg] 76 mm[Hg] Yoly Reese RN [facility] [employer] [facility] 4 14:11:45 Date Recorded Body height Body mass index (BMI) Body weight Body temperature Heart rate Respiratory rate Oxygen saturation Oxygen saturation in Arterial blood by Pulse oximetry Pain severity - 0-10 verbal numeric rating [Score] - Reported Systolic blood pressure Diastolic blood pressure Provider Name and Address Organization Details Last Updated DateTime 4 182.88 cm 34 kg/m2 467088. 68 g 97.2 [degF] 75 /min 20 /min 98 % 98 % 4 164 mm[Hg] 84 mm[Hg] Yoly Reese RN [facility] [employer] [facility] 4 14:46:59 Date Recorded Body height Body mass index (BMI) Body weight Body temperature Heart rate Respiratory rate Oxygen saturation Oxygen saturation in Arterial blood by Pulse oximetry Pain severity - 0-10 verbal numeric rating [Score] - Reported Systolic blood pressure Diastolic blood pressure Provider Name and Address Organization Details Last Updated DateTime 5 182.88 cm 35.6 kg/m2 944345 g 97.2 [degF] 105 /min 24 /min 97 % 97 % 0 178 mm[Hg] 90 mm[Hg] Yoly Reese RN [facility] [employer] [facility] 5 09:47:40 Date Recorded Body height Body mass index (BMI) Body weight Body temperature Heart rate Respiratory rate Oxygen saturation Oxygen saturation in Arterial blood by Pulse oximetry Pain severity - 0-10 verbal numeric rating [Score] - Reported Systolic blood pressure Diastolic blood pressure Provider Name and Address Organization Details Last Updated DateTime 5 182.88 cm 36.3 kg/m2 979027. 61 g 97.5 [degF] 93 /min 20 /min 97 % 97 % 6 170 mm[Hg] 100 mm[Hg] Yoly Reese RN [facility] [employer] [facility] 5 14:29:00 Date Recorded Systolic blood pressure Diastolic blood pressure Provider Name and Address Organization Details Last Updated DateTime 01/21/2025 142 mm[Hg] 64 mm[Hg] BASSAM Hood [address], [place], [address], [facility] [employer] 01/21/2025 14:57:55 Social History Question Answer Notes LastModified by Organizat ion Details LastModified Time Tobacco Smoking Status Unknown If Ever Smoked Carolin yanez, [place] 03/25/2023 09:52:50 Do You Have An Advance Directive? No Information not available 02/09/2024 In The 14 Days Before Symptom Onset, Have You Had Close Contact With A Laboratory-confi rmed COVID-19 While That Case Was Ill? No Information not available 02/09/2024 In The 14 Days Before Symptom Onset, Have You Had Close Contact With A Person Who Is Under Investigation For COVID-19 While That Person Was Ill? No Information not available 02/09/2024 What Type Of Diet Are You Following? REGULAR Information not available 02/09/2024 Have There Been Any Changes To Your Family Or Social Situation? No Information not available 02/09/2024 Where Do You Live? SingleLevelHouse Information not available 02/09/2024 Do You Have A Medical Power Of Advertising Assistant? No Information not available 02/09/2024 What Was The Date Of Your Most Recent Tobacco Screening? 08/15/2022 [email or web address] Information not available 03/25/2023 Do You Have Any Pets? Yes Information not available 02/09/2024 What Is Your Relationship Status? [email or web address] Information not available 01/15/2024 Do You Use [...] Social Media? No Information not available 02/09/2024 Have You Recently Traveled Abroad? No Information not available 02/09/2024 Sex: Unknown Functional Status Question Answer Note LastModified by Organizat ion Details LastModified Time What is your level of alcohol consumption? None [id number] Information not available 12/18/2022 Are you currently employed? 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 None Information not available 02/09/2024 Mental Status Question Answer Note LastModified by Organization D etails LastModified Time Do you feel stressed (tense, restless, nervous, or anxious, or unable to sleep at night)? [id number] Information not available 09/01/2024 Family History Nothing Reported. Medical History Condition Response DIABETES, TYPE Y OBESITY Y AUTISM SPECTRUM DISORDER (ASD) Y HYPERTENSION Y HIGH CHOLESTEROL / HYPERLIPIDEMIA Y Immunizations Vaccine Type Date Status Note Provider Nam e and Address Organization Details Recorded Time COVID-19, mRNA, LNP-S, PF, 100 mcg/0.5mL dose or 50 mcg/0.25mL dose 1 completed BASSAM Hood [address], [address], [place], [address], [employer] 02/09/2024 15:35:52 COVID-19, mRNA, LNP-S, PF, 100 mcg/0.5mL dose or 50 mcg/0.25mL dose 1 completed BASSAM Hood [address], [place], [address], [employer] 02/09/2024 15:35:52 COVID-19, mRNA, LNP-S, PF, 30 mcg/0.3 mL dose 2 completed BASSAM Hood [address], [place], [address], [employer] 02/09/2024 15:35:52 Td (adult), 2 Lf tetanus toxoid, preservative free, adsorbed 4 completed Yoly Reese RN [facility], [employer] [facility] [employer] 02/09/2024 16:11:51 Past Encounters Encounter ID Performer Location Encounter Start Date Encounter Closed Date Diagnosis/Indication Diagnosis SNOMED-CT Code Diagnosis ICD10 Code Diagnosis Note [id number] Manish Nj MD [facility] [place] [facility] [address] [facility] [place] [address] 06/06/2022 00:00:00 06/07/2022 06:35:04 [id number] Manish Nj MD [facility] [address] [facility] [place] [address] 07/04/2022 00:00:00 07/05/2022 06:11:29 [id number] Amadeo Villalta MD [address] [address] 08/15/2022 00:00:00 08/15/2022 13:18:21 [id number] Amadeo Villalta MD [facility] [place] [address] [facility] [address] [place] [address] 08/23/2022 00:00:00 08/23/2022 11:52:56 [id number] Salomon Vital MD [facility] [place] [address] [facility] [address] [place] [address] 08/27/2022 00:00:00 08/27/2022 12:10:22 [id number] Salomon Vital MD [facility] [place] [address] [facility] [address] [place] [address] 10/08/2022 00:00:00 10/08/2022 10:43:10 [id number] Salomon Vital MD [facility] [place] [address] [place] [address] 10/15/2022 00:00:00 10/15/2022 10:22:13 [id number] Salomon Vital MD [facility] [place] [address] [facility] [address] [place] [address] 11/05/2022 00:00:00 11/05/2022 12:14:58 [id number] Salomon Vital MD [facility] [place] [address] [place] [address] 12/17/2022 00:00:00 12/17/2022 12:47:31 [id number] Salomon Vital MD [facility] [place] [address] [place] [address] 01/14/2023 09:51:29 01/14/2023 10:38:21 Partial thickness rotator cuff tear 473689825 M75.102 Full thick ness rotator cuff tear 320629151 M75.122 patient can continue with strengthen ing now as tolerated he is 3 months postop we will work on phase 3 strengthen ing. Due to his cervical issues they can also do cervical traction for 10-15 minutes prior to starting the therapy on his [id number]|2025-03-02 13:26:11|2025-03-02 13:26:11|PM.IMPN||||"Progress Note: A&P Assessment and Plan (1) Diabetic foot ulcer: Code(s): E11.621 - Type 2 diabetes mellitus with foot ulcer; L97.509 - Non-pressure chronic ulcer of other part of unspecified foot with unspecified severity Status: Acute Assessment and Plan: x-ray shows Increased displacement with new osteolysis periosteal reaction at a transverse osteotomy at the fifth metatarsal diaphysis which is concerning for osteomyelitis. Podiatry consulted MRI pending Cefepime Flagyl and vancomycin Podiatry following (2) Type 2 diabetes mellitus: Code(s): E11.9 - Type 2 diabetes mellitus without complications Status: Acute Assessment and Plan: Diabetic diet Lantus and SSI Accu-Cheks a.c. HS Continue lyrica (3) HTN (hypertension): Code(s): I10 - Essential (primary) hypertension Status: Acute Assessment and Plan: Continue antihypertensives Plan DVT prophylaxis on Sq Lovenox Subjective Date/time seen: 03/02/25 13:26 Interval history: Comfortable at bedside MRI left foot pending Review of Systems Review of Systems: 12 systems were reviewed and are negative except for as per HPI. Exam Narrative: General: well appearing, appears stated age. HEENT: normocephalic, atraumatic. Mucous membranes moist. EOMI, PERRLA, bilateral sclera anicteric, no conjunctival injection. Neck supple without JVD, lymphadenopathy, or bruit. Respiratory: clear to ascultation bilaterally. No rales/rhonic/wheezes. Cardiovascular: Regular rate and rhythm, normal S1-S2 upon ascultation. No murmurs, rubs, or clicks. PMI is nondisplaced, capillary refill less than 3 second. Abdomen: Soft, round, no pulsatile masses, nondistended and nontender. No rebound, no guarding. No CVA tenderness, no hepatosplenomegaly. Bowel sounds present to all four quadrants. No high pitch or tinkling sounds, resonant to percussion. Extremities: No cyanosis, clubbing, or edema present. Pulses are palpable 2/2. Left foot with dressing clean dry intact Neuro: Alert and orientated x 4. PERRLA. Cranial nerves 2-12 intact without focal deficit. Skin: Warm, dry, and intact, without rash, erythema, or lesion. Objective Data Vital Signs Vital Signs: Vital Signs - 24 hr 03/01/25 14:00 03/01/25 20:00 03/01/25 20:20 Temperature 97.5 F L 96.7 F L Pulse Rate 89 77 Respiratory Rate 18 16 Blood Pressure 139/65 151/81 H Pulse Oximetry 95 98 Oxygen Delivery Room Air 03/02/25 04:45 03/02/25 08:00 Temperature 97.6 F Pulse Rate 71 Respiratory Rate 20 Blood Pressure 139/69 Pulse Oximetry 97 Oxygen Delivery Room Air Intake/Output Intake/Output: Intake & Output 02/27/25 02/28/25 03/01/25 03/02/25 23:59 23:59 23:59 23:59 Intake Total 1226 1490 Balance 1226 1490 Meds/Results Medications: Active Medications Generic Name Dose Route Start Last Admin Trade Name Freq PRN Reason Stop Dose Admin Acetaminophen 650 mg 03/01/25 12:55 Acetaminophen 325 Mg Tablet PO Q4H PRN Mild Pain (1-3) or Fever Dextrose 12.5 gm 03/01/25 13:29 Dextrose 50% 25 Gm/50 Ml Syringe IV PUSH PRN PRN Hypoglycemia Protocol Enoxaparin Sodium 40 mg 03/02/25 09:00 03/02/25 08:06 Enoxaparin 40 Mg/0.4 Ml Syringe SUB-Q 40 mg DAILY JASMYNE Administration Glucagon 1 mg 03/01/25 13:29 Glucagon For Inj 1 Mg Vial IM PRN PRN Hypoglycemia Protocol Glucose 15 gm 03/01/25 13:29 Glucose Oral Gel 15 Gm Of Glucse In 37.5 Gm Tube PO PRN PRN Hypoglycemia Protocol Hydrochlorothiazide 25 mg 03/02/25 09:00 03/02/25 08:06 Hydrochlorothiazide 25 Mg Tablet PO 25 mg DAILY JASMYNE Administration Dextrose 1,000 mls @ 100 mls/hr 03/01/25 13:29 Dextrose 5% 1,000 Ml IVPB PRN PRN Hypoglycemia Protocol Metronidazole 500 mg in 100 mls @ 100 mls/hr 03/01/25 22:00 03/02/25 13:03 Flagyl 500 Mg/Iso Soln 100 Ml IVPB 100 mls/hr Q8H JASMYNE Administration Vancomycin HCl 1,500 mg in 500 mls @ 250 mls/hr 03/02/25 05:00 03/02/25 07:21 Vancomycin 1,500 Mg/Ns 500 Ml IVPB Infused Q12H JASMYNE Infusion Cefepime HCl 2 gm in 50 mls @ 100 mls/hr 03/02/25 06:00 03/02/25 07:17 Maxipime 2 Gm/Ns 50 Ml IVPB Infused Q12H JASMYNE Infusion Insulin Aspart 2 - 5 units 03/01/25 17:00 03/02/25 11:30 Insulin Aspart (*Bkc) 100 Units/Ml SUB-Q Not Given TIDWM [facility] Protocol Insulin Aspart 1 - 2 units 03/01/25 21:00 03/01/25 20:27 Insulin Aspart (*Bkc) 100 Units/Ml SUB-Q Not Given HS JASMYNE Protocol Lisinopril 40 mg 03/02/25 09:00 03/02/25 08:06 Lisinopril 20 Mg Tablet PO 40 mg DAILY JASMYNE Administration Pregabalin 100 mg 03/01/25 12:55 03/02/25 13:03 Pregabalin (*Crx) 50 Mg Capsule PO 100 mg Q8HR JASMYNE Administration Tramadol HCl 100 mg 03/01/25 20:17 03/02/25 08:06 Tramadol Hcl (*Crx) 50 Mg Tablet PO 100 mg Q6H PRN Administration Moderate Pain (4-6) Radiology Results: ITS Impressions Foot X-Ray 03/01/25 14:50 IMPRESSION: 1. Increased displacement with new osteolysis periosteal reaction at a transverse osteotomy at the fifth metatarsal diaphysis which is concerning for osteomyelitis. Labs Labs: Laboratory Results - last 24 hr 03/01/25 03/01/25 03/01/25 14:59 16:30 20:27 WBC 9.8 RBC 4.35 L Hgb 13.0 L Hct 39.8 L MCV 91.5 MCH 29.9 MCHC 32.7 RDW 12.2 Plt Count 150 MPV 10.4 Immature Gran % (Auto) 0.3 Neut % (Auto) 59.6 Lymph % (Auto) 27.4 Warrick % (Auto) 6.9 Eos % (Auto) 5.3 H Baso % (Auto) 0.5 Lymph # (Auto) 2.68 Warrick # (Auto) 0.7 H Eos # (Auto) 0.5 H Baso # (Auto) 0.1 Abs Immat Gran (auto) 0.03 Absolute Neuts (auto) 5.8 Absolute Nucleated RBC 0.000 Nucleated RBC % 0.0 ESR 24 H Sodium 139 Potassium 3.7 Chloride 104 Carbon Dioxide 27 Anion Gap 8 BUN 17 Creatinine 0.66 L Estim Creat Clear Calc 135 Estimated GFR > 60 Glucose 111 H POC Capillary Glucose 103 147 H Hemoglobin A1c 6.8 H Calcium 9.1 C-Reactive Protein 0.9 03/02/25 03/02/25 03/02/25 05:26 07:38 11:26 WBC 8.5 RBC 4.35 L Hgb 13.2 L Hct 39.6 L MCV 91.0 MCH 30.3 MCHC 33.3 RDW 12.0 Plt Count 146 L MPV 10.6 H Immature Gran % (Auto) 0.4 Neut % (Auto) 56.8 Lymph % (Auto) 27.9 Warrick % (Auto) 7.8 Eos % (Auto) 6.5 H Baso % (Auto) 0.6 Lymph # (Auto) 2.37 Warrick # (Auto) 0.7 H Eos # (Auto) 0.6 H Baso # (Auto) 0.1 Abs Immat Gran (auto) 0.03 Absolute Neuts (auto) 4.8 Absolute Nucleated RBC 0.000 Nucleated RBC % 0.0 ESR Sodium 138 Potassium 3.8 Chloride 105 Carbon Dioxide 27 Anion Gap 6 BUN 14 Creatinine 0.67 L Estim Creat Clear Calc 133 Estimated GFR > 60 Glucose 104 POC Capillary Glucose 127 H 112 H Hemoglobin A1c Calcium 8.7 C-Reactive Protein Quality VTE Prophylaxis VTE prophylaxis: mechanical ordered and pharmacologic ordered"
--- OUTSIDE RECORDS SUMMARY | 2025-03-01 10:34 | XMS_ITS | CONTINUITY OF CARE DOCUMENT ---
Author Name ofe lanceerrol Address Unknown Organization [facility] Address [address] [place] [address] Phone [phone] Care Team Providers Care Protozoology Teacher Name Role Phone EDWIN MOLINA, MICHELL Bob Unavailable SEPIDEH MOLINA, HELLEN Brown Unavailable [phone] INSURANCE PROVIDERS Payer name Policy type / Coverage type [facility] constitution party ID COVENTRY- OPEN ACCESS/PPO Other [id number]
--- OUTSIDE RECORDS SUMMARY | 2025-03-01 10:34 | XMS_ITS | Clinical Summary ---
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
--- OUTSIDE RECORDS SUMMARY | 2025-03-01 10:34 | XMS_ITS | Clinical Summary ---
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
--- OUTSIDE RECORDS SUMMARY | 2025-03-01 10:34 | XMS_ITS | Clinical Summary ---
Author Organization [facility] Address [address] [place] [address] Care Team Providers Care Mailer Name Role Phone Unavailable Primary Care Provider Unavailabl e Social History Tobacco Use Types Packs/Day Years Used Date Smoking Tobacco: Never Assessed Sex and Gender Information Value Date Recorded Sex Assigned at Not on file Legal Sex Male 12:39 PM CDT Gender Identity Not on file Sexual Orientation Not on file Plan of Treatment Health Maintenance Due Date Last Done Comments DIABETES ANNUAL FOOT EXAM 1980 DIABETES ANNUAL [...] (1 - 1-dose 75+ series) 2037 Insurance [facility] BLUE ACCESS/TRUE BLUE PPO [facility] BLUE ACCESS/TRUE BLUE PPO
--- OUTSIDE RECORDS SUMMARY | 2025-03-01 10:34 | XMS_ITS | Referral Summary ---
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
[2025-03-01 11:50] VITALS: BMI 37.0
--- NOTE | 2025-03-01 12:09 | ADMGEN ---
This patient, Darron Suero, was admitted to 3 Med Surg Room 330-01. Patient/family oriented to hospital policies and general routines including ID bracelet, bed and alarms, visiting hours, pain management, procedures, bathroom and other care routines, personal items, smoking policy, room service/diet, and visiting hours. Information on how to activate the Rapid Response Team has been discussed. Patient/Family are encouraged to report perceived risks to care and to ask questions if they do not understand what they are told or what they should do. Pt was a direct admit.
--- NOTE | 2025-03-01 13:38 | P.HP_ITS ---
H&P: HPI History of Present Illness Date/Time: 03/01/25 13:38 Chief Complaint: right foot wound Narrative: 64-year-old male past medical history of diabetes, chronic pain severe neuropathy presents nonhealing diabetic wound to the right foot. He states that he has been on antibiotics for 2 weeks without any improvement. Today he went to his special loan officer appointment and he recommended going to the hospital for IV antibiotics. Patient denies nausea vomiting fever chills. Lab work shows anemia at 13.0, x-ray shows Increased displacement with new osteolysis periosteal reaction at a transverse osteotomy at the fifth metatarsal diaphysis which is concerning for osteomyelitis. MRI pending Review of Systems Review of Systems: 12 systems were reviewed and are negativ e except for as per HPI. [facility] Past Medical History Medical History (Updated 03/01/25 @ 17:16 by Juan Cano Jr., DPKevin) Diabetes H/O asbestos exposure Peripheral neuropathy Cervical spondylosis Osteoarthritis Chronic pain HTN (hypertension) Pernicious anemia HLD (hyperlipidemia) Social History Social History Smoking packs per day: 1 Smoking cigarettes per day: 20.0 Years smoked: 20 Smoking pack-years: 20.00 Smoking status: Former smoker Tobacco type: cigarettes Smoking end date: 03/01/93 Alcohol intake: never Substance use: current Substance use type: marijuana Last use: 02/28/25 Do You Feel Safe in your Home?: Yes Lack of Transportation: No Lack of Food: Never True Current Housing: I Have Housing Concerned About Future Housing: No Difficulty Paying Gas/Electric Bills: No Difficulty Paying for Meds: No Currently Unemployed: No Education: Don't Know Difficulty w/ Childcare or Family Care: No Living arrangements: alone Spiritual care concerns: No Meds Home Medications and Allergies Home Medications Medication Instructions Recorded Confirmed Type lisinopril 20 2 tablet PO DAILY 10/22/22 03/01/25 History mg-hydrochlorothiazide 12.5 mg tablet tramadol 50 mg tablet 100 mg PO Q6H PRN pain 10/22/22 03/01/25 History cyanocobalamin (vitamin B-12) 1,000 mcg IM MONTHLY 12/24/24 03/01/25 History 1,000 mcg/mL injection solution naproxen 500 mg tablet 500 mg PO Q12H 12/24/24 03/01/25 History pregabalin 100 mg capsule 100 mg PO Q8H 12/24/24 03/01/25 History tirzepatide 2.5 mg/0.5 mL 2.5 mg subcut WEEKLY 03/01/25 03/01/25 History subcutaneous pen injector (Mounjaro) Allergies Allergy/AdvReac Type Severity Reaction Status Date / Time aspirin Allergy Unknown RASH Verified 03/01/25 12:29 peanut Allergy Unknown RASH Verified 03/01/25 12:29 soybean Allergy Unknown RASH Verified 03/01/25 12:29 Scallop Allergy Unknown RASH Uncoded 03/01/25 12:29 Shrimp Allergy Unknown RASH Uncoded 03/01/25 12:29 Vital Signs Vital Signs - 24 hr 03/01/25 11:00 Oxygen Delivery Room Air Exam Narrative: General: well appearing, appears stated age. HEENT: normocephalic, atraumatic. Mucous membranes moist. EOMI, PERRLA, bilateral sclera anicteric, no conjunctival injection. Neck supple without JVD, lymphadenopathy, or bruit. Respiratory: clear to ascultation bilaterally. No rales/rhonic/wheezes. Cardiovascular: Regular rate and rhythm, normal S1-S2 upon ascultation. No murmurs, rubs, or clicks. PMI is nondisplaced, capillary refill less than 3 second. Abdomen: Soft, round, no pulsatile masses, nondistended and nontender. No rebound, no guarding. No CVA tenderness, no hepatosplenomegaly. Bowel sounds present to all four quadrants. No high pitch or tinkling sounds, resonant to percussion. Extremities: No cyanosis, clubbing, or edema present. Pulses are palpable 2/2. Left foot with dressing clean dry intact Neuro: Alert and orientated x 4. PERRLA. Cranial nerves 2-12 intact without focal deficit. Skin: Warm, dry, and intact, without rash, erythema, or lesion. Psych: pleasant, cooperative, normal speech, normal affect, no hallucinations, no dysarthia Assessment and Plan Assessment and plan (1) Diabetic foot ulcer: Code(s): E11.621 - Type 2 diabetes mellitus with foot ulcer; L97.509 - Non-pressure chronic ulcer of other part of unspecified foot with unspecified severity Status: Acute Assessment and Plan: x-ray shows Increased displacement with new osteolysis periosteal reaction at a transverse osteotomy at the fifth metatarsal diaphysis which is concerning for osteomyelitis. Podiatry consulted MRI pending Cefepime Flagyl and vancomycin (2) Type 2 diabetes mellitus: Code(s): E11.9 - Type 2 diabetes mellitus without complications Status: Acute Assessment and Plan: Diabetic diet Lantus and SSI Accu-Cheks a.c. HS Continue lyrica (3) HTN (hypertension): Code(s): I10 - Essential (primary) hypertension Status: Acute Assessment and Plan: Continue antihypertensives Quality VTE Prophylaxis VTE prophylaxis: mechanical ordered and pharmacologic ordered Hospitalist [facility] Advance Care Plan I have confirmed that the patient's Advanced Care Plan is present, code status is documented, or surrogate decision maker is listed in patient medical record.: Yes Medication Reconciliation I have utilized all available resources to obtain, update and review the patients current medications (includes all prescriptions, OTC, herbals, cannabis, and nutritional supplements).: Yes
[2025-03-01 14:00] VITALS: BP 139/65; PULSE 89; RESP 18; TEMP 36.4; O2SAT 95
[2025-03-01] MEDS: CEFEPIME 2 GM/NS 50 ML 2 GM/50 ML BAG IVPB (14:56)
--- NOTE | 2025-03-01 15:04 | PCWOUND ---
WOCN NOTE Patient a direct admit from Dr. Cano' office. Received nurse driven consult for possible pressure wound. Informed RN that Dr. Cano typically follows his own wounds in the hospital. Wound care will hold off on seeing patient until tomorrow if doesn't put in his own wound care instructions. Dressing in place to foot was applied by from the office, dressing to stay in place until tomorrow.
[2025-03-01 15:13] LABS: Basophils Absolute Auto 0.1 K/mm3 (0.0-0.1); Basophils Percent Auto 0.5 % (0.2-1.2); Eosinophils Absolute Auto 0.5 K/mm3 (0-0.3); Eosinophils Percent Auto 5.3 % (0-4.4); Hematocrit 39.8 % (42.0-52.0); Immature Granulocyte Absolute 0.03 K/mm3 (0.00-0.031); Immature Granulocyte Percent A 0.3 % (0-0.5); Lymphocytes Absolute Auto 2.68 K/mm3 (0.9-3.2); Lymphocytes Percent Auto 27.4 % (18.3-44.2); Mean Corpuscular HGB Conc 32.7 g/dl (32-36); Mean Corpuscular Hemoglobin 29.9 pg (26-34); Mean Corpuscular Volume 91.5 fl (80-100); Mean Platelet Volume 10.4 fl (7.4-10.4); Monocytes Absolute Auto 0.7 K/mm3 (0.1-0.6); Monocytes Percent Auto 6.9 % (2.6-8.5); Neutrophils Absolute Auto 5.8 K/mm3 (1.3-6.7); Neutrophils Percent Auto 59.6 % (45.5-73.1); Platelet Count Result 150 k/mm3 (150-375); Red Blood Count 4.35 M/mm3 (4.6-6.20); Red Cell Distribution Width 12.2 % (11.5-14.5); White Blood Count 9.8 K/mm3 (4.5-10.0)
[2025-03-01 15:22] LABS: Anion Gap 8 mmol/L (4-12); Blood Urea Nitrogen 17 mg/dL (9-20); Calcium 9.1 mg/dL (8.4-10.2); Carbon Dioxide 27 mmol/L (22-30); Chloride 104 mmol/L (98-107); Estimated CRCL calculation 135 ml/min; Estimated Glomerular Filt Rate > 60; Glucose 111 mg/dL (65-110); Potassium 3.7 mmol/L (3.4-5.0); Sodium 139 mmol/L (137-145)
[2025-03-01] MEDS: metroNIDAZOLE 500 MG/ISO 100ML 500 MG/100 ML BAG 100 MG IVPB ×2 (15:32→21:59)
[2025-03-01 16:32] LABS: Glucose Point of Care 103 mg/dl (65-105)
[2025-03-01] MEDS: VANCOMYCIN 1,250 MG/NS 250 ML 1,250 MG/250 ML BAG 166.67 MG IVPB ×2 (16:33→18:16)
--- OUTSIDE RECORDS SUMMARY | 2025-03-01 16:40 | XMS_ITS | Clinical Summary ---
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
--- OUTSIDE RECORDS SUMMARY | 2025-03-01 16:40 | XMS_ITS | CONTINUITY OF CARE DOCUMENT ---
Author Name ofe lanceerrol Address Unknown Organization [facility] Address [address] [place] [address] Phone [phone] Care Team Providers Care General Studies Program Chair Name Role Phone EDWIN MOLINA, MICHELL Bob Unavailable [phone] SEPIDEH MLOINA, HELLEN Brown Unavailable INSURANCE PROVIDERS Payer name Policy type / Coverage type [facility] libertarian ID COVENTRY- OPEN ACCESS/PPO Other [id number]
--- OUTSIDE RECORDS SUMMARY | 2025-03-01 16:40 | XMS_ITS | Clinical Summary ---
Author Organization [facility] Address [address] [place] [address] Care Team Providers Care Mold Yard Worker Name Role Phone Unavailable Primary Care Provider [...] (1 - 1-dose 75+ series) [address] [facility] BLUE ACCESS/TRUE BLUE PPO [facility] BLUE ACCESS/TRUE BLUE PPO
--- OUTSIDE RECORDS SUMMARY | 2025-03-01 16:40 | XMS_ITS | Clinical Summary ---
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
--- OUTSIDE RECORDS SUMMARY | 2025-03-01 16:40 | XMS_ITS | Referral Summary ---
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
--- NOTE | 2025-03-01 17:10 | P.HP_ITS ---
H&P: HPI History of Present Illness Date/Time: 03/01/25 17:10 Chief Complaint: Diabetic ulcer right foot with swelling and redness Narrative: The patient presented to my office today for a follow up visit for a neuropathic diabetic ulceration present to the plantar lateral right forefoot with an increase in redness swelling and drainage present. No FCNV. 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 He has been compliant with being non weight bearing to offload the ulcer with a knee scooter as well as local wound care with [employer]. Review of Systems Review of Systems: All systems reviewed & are unremarkable except as noted in HPI and below (history of present illness.) Constitutional: Comments: No FCNV. [facility] Past Medical History Medical History (Updated 03/01/25 @ 17:16 by Juan Cano Jr., DPKevin) Diabetes H/O asbestos exposure Peripheral neuropathy Cervical spondylosis Osteoarthritis Chronic pain HTN (hypertension) Pernicious anemia HLD (hyperlipidemia) Social History Social History Smoking packs per day: 1 Smoking cigarettes per day: 20.0 Years smoked: 20 Smoking pack-years: 20.00 Smoking status: Former smoker Tobacco type: cigarettes Smoking end date: 03/01/93 Alcohol intake: never Substance use: current Substance use type: marijuana Last use: 02/28/25 Do You Feel Safe in your Home?: Yes Lack of Transportation: No Lack of Food: Never True Current Housing: I Have Housing Concerned About Future Housing: No Difficulty Paying Gas/Electric Bills: No Difficulty Paying for Meds: No Currently Unemployed: No Education: Don't Know Difficulty w/ Childcare or Family Care: No Living arrangements: alone Spiritual care concerns: No Meds Home Medications and Allergies Home Medications Medication Instructions Recorded Confirmed Type lisinopril 20 2 tablet PO DAILY 10/22/22 03/01/25 History mg-hydrochlorothiazide 12.5 mg tablet tramadol 50 mg tablet 100 mg PO Q6H PRN pain 10/22/22 03/01/25 History cyanocobalamin (vitamin B-12) 1,000 mcg IM MONTHLY 12/24/24 03/01/25 History 1,000 mcg/mL injection solution naproxen 500 mg tablet 500 mg PO Q12H 12/24/24 03/01/25 History pregabalin 100 mg capsule 100 mg PO Q8H 12/24/24 03/01/25 History tirzepatide 2.5 mg/0.5 mL 2.5 mg subcut WEEKLY 03/01/25 03/01/25 History subcutaneous pen injector (Mounjaro) Allergies Allergy/AdvReac Type Severity Reaction Status Date / Time aspirin Allergy Unknown RASH Verified 03/01/25 12:29 peanut Allergy Unknown RASH Verified 03/01/25 12:29 soybean Allergy Unknown RASH Verified 03/01/25 12:29 Scallop Allergy Unknown RASH Uncoded 03/01/25 12:29 Shrimp Allergy Unknown RASH Uncoded 03/01/25 12:29 Vital Signs Vital Signs - 24 hr 03/01/25 11:00 03/01/25 14:00 Temperature 36.4 C L Pulse Rate 89 Respiratory Rate 18 Blood Pressure 139/65 Pulse Oximetry 95 Oxygen Delivery Room Air Exam Skin: Wounds: wounds noted Other: Positive full thickness ulcer, 3mm in diameter, present to the plantar lateral right forefoot at the elevational osteotomy site. Edema, calor and erythema noted along the periulcerative area extending 5cm. H&P: Results Labs Labs: Short CBC 03/01/25 Range/Units 14:59 WBC 9.8 (4.5-10.0) K/mm3 Hgb 13.0 L (14.0-18.0) g/dL Hct 39.8 L (42.0-52.0) % Plt Count 150 (150-375) k/mm3 BMP 03/01/25 14:59 Sodium 139 Potassium 3.7 Chloride 104 Carbon Dioxide 27 BUN 17 Creatinine 0.66 L Glucose 111 H Calcium 9.1 Assessment and Plan Assessment and plan (1) Diabetic ulcer of right foot: Code(s): E11.621 - Type 2 diabetes mellitus with foot ulcer; L97.519 - Non-pressure chronic ulcer of other part of right foot with unspecified severity Status: Acute Assessment and Plan: Continue with Vancomycin per Internal Medicine Awaiting Blood cx, ordered deep wound culture swab with aerobic and anaerobic culture and sensitivity. Ordered ESR and CRP Ordered Ceretec Bone scan as MRI not sensitive for bone infection Continue with Knee scooter to offload the ulceration WBC WNL currently Change dressing with Aquacell AgRope, 4x4 gauze, Kerlix and SANDEE.
[2025-03-01 17:36] LABS: Hemoglobin A1C 6.8 % (<5.7)
[2025-03-01] MEDS: HYDROcodone/acetaminophen (*CRX) 5-325 MG TABLET 1 TAB PO (18:19)
[2025-03-01 18:28] LABS: CRP 0.9 mg/dL (<1.0)
[2025-03-01 18:32] LABS: Erythrocyte Sedimentation Rate 24 mm/hr (0-20)
[2025-03-01 20:20] VITALS: BP 151/81; PULSE 77; RESP 16; TEMP 35.9; O2SAT 98
[2025-03-01 20:31] LABS: Glucose Point of Care 147 mg/dl (65-105)
[2025-03-01] MEDS: PREGABALIN (*CRX) 50 MG CAPSULE 100 MG PO (21:56)
[2025-03-02] MEDS: VANCOMYCIN 1,500 MG/NS 500 ML 1,500 MG/500 ML BAG 250 MG IVPB ×2 (04:25→16:04)
[2025-03-02 04:45] VITALS: BP 139/69; PULSE 71; RESP 20; TEMP 36.4; O2SAT 97
[2025-03-02 06:11] LABS: Basophils Absolute Auto 0.1 K/mm3 (0.0-0.1); Basophils Percent Auto 0.6 % (0.2-1.2); Eosinophils Absolute Auto 0.6 K/mm3 (0-0.3); Eosinophils Percent Auto 6.5 % (0-4.4); Hematocrit 39.6 % (42.0-52.0); Hemoglobin 13.2 g/dL (14.0-18.0); Immature Granulocyte Absolute 0.03 K/mm3 (0.00-0.031); Immature Granulocyte Percent A 0.4 % (0-0.5); Lymphocytes Absolute Auto 2.37 K/mm3 (0.9-3.2); Lymphocytes Percent Auto 27.9 % (18.3-44.2); Mean Corpuscular HGB Conc 33.3 g/dl (32-36); Mean Corpuscular Hemoglobin 30.3 pg (26-34); Mean Platelet Volume 10.6 fl (7.4-10.4); Monocytes Absolute Auto 0.7 K/mm3 (0.1-0.6); Monocytes Percent Auto 7.8 % (2.6-8.5); Neutrophils Absolute Auto 4.8 K/mm3 (1.3-6.7); Neutrophils Percent Auto 56.8 % (45.5-73.1); Platelet Count Result 146 k/mm3 (150-375); Red Blood Count 4.35 M/mm3 (4.6-6.20); White Blood Count 8.5 K/mm3 (4.5-10.0)
[2025-03-02 06:37] LABS: Anion Gap 6 mmol/L (4-12); Blood Urea Nitrogen 14 mg/dL (9-20); Calcium 8.7 mg/dL (8.4-10.2); Carbon Dioxide 27 mmol/L (22-30); Chloride 105 mmol/L (98-107); Estimated CRCL calculation 133 ml/min; Estimated Glomerular Filt Rate > 60; Glucose 104 mg/dL (65-110); Potassium 3.8 mmol/L (3.4-5.0); Sodium 138 mmol/L (137-145)
[2025-03-02] MEDS: PREGABALIN (*CRX) 50 MG CAPSULE 100 MG PO ×3 (06:47→21:09)
[2025-03-02] MEDS: CEFEPIME 2 GM/NS 50 ML 2 GM/50 ML BAG IVPB ×2 (06:47→19:50)
[2025-03-02] MEDS: metroNIDAZOLE 500 MG/ISO 100ML 500 MG/100 ML BAG 100 MG IVPB ×3 (06:47→21:09)
[2025-03-02 07:45] LABS: Glucose Point of Care 127 mg/dl (65-105)
--- NOTE | 2025-03-02 07:48 | PCWOUND ---
WOCN NOTE Received multiple consults for patient's foot wound. Wound is being followed by his commercial carpet installer Dr. Cano'. Wound care will not follow patient at this time.
[2025-03-02] MEDS: traMADol HCL (*CRX) 50 MG TABLET 100 MG PO ×3 (08:06→23:19)
[2025-03-02] MEDS: lisinopriL 20 MG TABLET 40 MG PO (08:06)
[2025-03-02] MEDS: hydroCHLOROthiazide 25 MG TABLET PO (08:06)
[2025-03-02] MEDS: ENOXAPARIN 40 MG/0.4 ML SYRINGE SUB-Q (08:06)
--- NOTE | 2025-03-02 09:42 | WPDPN ---
Progress Note: A&P Assessment and Plan (1) Diabetic foot ulcer: Code(s): E11.621 - Type 2 diabetes mellitus with foot ulcer; L97.509 - Non-pressure chronic ulcer of other part of unspecified foot with unspecified severity Status: Acute Assessment and Plan: Awaiting Imaging Less edema and erythema since admitted day of IV abx continue Awaiting Wound and Blood cx results (2) Cellulitis of foot associated with diabetes mellitus: Code(s): E11.628 - Type 2 diabetes mellitus with other skin complications; L03.119 - Cellulitis of unspecified part of limb Status: Acute Subjective Date/time seen: 03/02/25 09:42 Interval history: Patient seen at bedside resting comfortably. No FCNV. Exam Skin: Wounds: wounds noted foot size (3mm), bed yellow, drainage yellow, margins and open Other: Significantly less edema and erythema compared to yesterday Objective Data Vital Signs Vital Signs: Vital Signs - 24 hr 03/01/25 11:00 03/01/25 14:00 03/01/25 20:00 Temperature 36.4 C L Pulse Rate 89 Respiratory Rate 18 Blood Pressure 139/65 Pulse Oximetry 95 Oxygen Delivery Room Air Room Air 03/01/25 20:20 03/02/25 04:45 Temperature 35.9 C L 36.4 C Pulse Rate 77 71 Respiratory Rate 16 20 Blood Pressure 151/81 H 139/69 Pulse Oximetry 98 97 Oxygen Delivery Intake/Output Intake/Output: Intake & Output 02/27/25 02/28/25 03/01/25 03/02/25 23:59 23:59 23:59 23:59 Intake Total 1226 1150 Balance 1226 1150 Meds/Results Medications: Active Medications Generic Name Dose Route Start Last Admin Trade Name Freq PRN Reason Stop Dose Admin Acetaminophen 650 mg 03/01/25 12:55 Acetaminophen 325 Mg Tablet PO Q4H PRN Mild Pain (1-3) or Fever Dextrose 12.5 gm 03/01/25 13:29 Dextrose 50% 25 Gm/50 Ml Syringe IV PUSH PRN PRN Hypoglycemia Protocol Enoxaparin Sodium 40 mg 03/02/25 09:00 03/02/25 08:06 Enoxaparin 40 Mg/0.4 Ml Syringe SUB-Q 40 mg DAILY JASMYNE Administration Glucagon 1 mg 03/01/25 13:29 Glucagon For Inj 1 Mg Vial IM PRN PRN Hypoglycemia Protocol Glucose 15 gm 03/01/25 13:29 Glucose Oral Gel 15 Gm Of Glucse In 37.5 Gm Tube PO PRN PRN Hypoglycemia Protocol Hydrochlorothiazide 25 mg 03/02/25 09:00 03/02/25 08:06 Hydrochlorothiazide 25 Mg Tablet PO 25 mg DAILY JASMYNE Administration Dextrose 1,000 mls @ 100 mls/hr 03/01/25 13:29 Dextrose 5% 1,000 Ml IVPB PRN PRN Hypoglycemia Protocol Metronidazole 500 mg in 100 mls @ 100 mls/hr 03/01/25 22:00 03/02/25 06:47 Flagyl 500 Mg/Iso Soln 100 Ml IVPB 100 mls/hr Q8H JASMYNE Administration Vancomycin HCl 1,500 mg in 500 mls @ 250 mls/hr 03/02/25 05:00 03/02/25 07:21 Vancomycin 1,500 Mg/Ns 500 Ml IVPB Infused Q12H JASMYNE Infusion Cefepime HCl 2 gm in 50 mls @ 100 mls/hr 03/02/25 06:00 03/02/25 07:17 Maxipime 2 Gm/Ns 50 Ml IVPB Infused Q12H JASMYNE Infusion Insulin Aspart 2 - 5 units 03/01/25 17:00 03/02/25 07:56 Insulin Aspart (*Bkc) 100 Units/Ml SUB-Q Not Given [facility] Protocol Insulin Aspart 1 - 2 units 03/01/25 21:00 03/01/25 20:27 Insulin Aspart (*Bkc) 100 Units/Ml SUB-Q Not Given HS [facility] Protocol Lisinopril 40 mg 03/02/25 09:00 03/02/25 08:06 Lisinopril 20 Mg Tablet PO 40 mg DAILY JASMYNE Administration Pregabalin 100 mg 03/01/25 12:55 03/02/25 06:47 Pregabalin (*Crx) 50 Mg Capsule PO 100 mg Q8HR JASMYNE Administration Tramadol HCl 100 mg 03/01/25 20:17 03/02/25 08:06 Tramadol Hcl (*Crx) 50 Mg Tablet PO 100 mg Q6H PRN Administration Moderate Pain (4-6) Radiology Results: ITS Impressions Foot X-Ray 03/01/25 14:50 IMPRESSION: 1. Increased displacement with new osteolysis periosteal reaction at a transverse osteotomy at the fifth metatarsal diaphysis which is concerning for osteomyelitis. Labs Labs: Laboratory Results - last 24 hr 03/01/25 03/01/25 03/01/25 14:59 16:30 20:27 WBC 9.8 RBC 4.35 L Hgb 13.0 L Hct 39.8 L MCV 91.5 MCH 29.9 MCHC 32.7 RDW 12.2 Plt Count 150 MPV 10.4 Immature Gran % (Auto) 0.3 Neut % (Auto) 59.6 Lymph % (Auto) 27.4 [place] % (Auto) 6.9 Eos % (Auto) 5.3 H Baso % (Auto) 0.5 Lymph # (Auto) 2.68 [place] # (Auto) 0.7 H Eos # (Auto) 0.5 H Baso # (Auto) 0.1 Abs Immat Gran (auto) 0.03 Absolute Neuts (auto) 5.8 Absolute Nucleated RBC 0.000 Nucleated RBC % 0.0 ESR 24 H Sodium 139 Potassium 3.7 Chloride 104 Carbon Dioxide 27 Anion Gap 8 BUN 17 Creatinine 0.66 L Estim Creat Clear Calc 135 Estimated GFR > 60 Glucose 111 H POC Capillary Glucose 103 147 H Hemoglobin A1c 6.8 H Calcium 9.1 C-Reactive Protein 0.9 03/02/25 03/02/25 05:26 07:38 WBC 8.5 RBC 4.35 L Hgb 13.2 L Hct 39.6 L MCV 91.0 MCH 30.3 MCHC 33.3 RDW 12.0 Plt Count 146 L MPV 10.6 H Immature Gran % (Auto) 0.4 Neut % (Auto) 56.8 Lymph % (Auto) 27.9 [place] % (Auto) 7.8 Eos % (Auto) 6.5 H Baso % (Auto) 0.6 Lymph # (Auto) 2.37 [place] # (Auto) 0.7 H Eos # (Auto) 0.6 H Baso # (Auto) 0.1 Abs Immat Gran (auto) 0.03 Absolute Neuts (auto) 4.8 Absolute Nucleated RBC 0.000 Nucleated RBC % 0.0 ESR Sodium 138 Potassium 3.8 Chloride 105 Carbon Dioxide 27 Anion Gap 6 BUN 14 Creatinine 0.67 L Estim Creat Clear Calc 133 Estimated GFR > 60 Glucose 104 POC Capillary Glucose 127 H Hemoglobin A1c Calcium 8.7 C-Reactive Protein
[2025-03-02 11:30] LABS: Glucose Point of Care 112 mg/dl (65-105)
--- NOTE | 2025-03-02 13:26 | P.PNIM_ITS ---
Progress Note: A&P Assessment and Plan (1) Diabetic foot ulcer: Code(s): E11.621 - Type 2 diabetes mellitus with foot ulcer; L97.509 - Non-pressure chronic ulcer of other part of unspecified foot with unspecified severity Status: Acute Assessment and Plan: x-ray shows Increased displacement with new osteolysis periosteal reaction at a transverse osteotomy at the fifth metatarsal diaphysis which is concerning for osteomyelitis. Podiatry consulted MRI pending Cefepime Flagyl and vancomycin Podiatry following (2) Type 2 diabetes mellitus: Code(s): E11.9 - Type 2 diabetes mellitus without complications Status: Acute Assessment and Plan: Diabetic diet Lantus and SSI Accu-Cheks a.c. HS Continue lyrica (3) HTN (hypertension): Code(s): I10 - Essential (primary) hypertension Status: Acute Assessment and Plan: Continue antihypertensives Plan DVT prophylaxis on Sq Lovenox Subjective Date/time seen: 03/02/25 13:26 Interval history: Comfortable at bedside MRI left foot pending Review of Systems Review of Systems: 12 systems were reviewed and are negativ e except for as per HPI. Exam Narrative: General: well appearing, appears stated age. HEENT: normocephalic, atraumatic. Mucous membranes moist. EOMI, PERRLA, bilateral sclera anicteric, no conjunctival injection. Neck supple without JVD, lymphadenopathy, or bruit. Respiratory: clear to ascultation bilaterally. No rales/rhonic/wheezes. Cardiovascular: Regular rate and rhythm, normal S1-S2 upon ascultation. No murmurs, rubs, or clicks. PMI is nondisplaced, capillary refill less than 3 second. Abdomen: Soft, round, no pulsatile masses, nondistended and nontender. No rebound, no guarding. No CVA tenderness, no hepatosplenomegaly. Bowel sounds p resent to all four quadrants. No high pitch or tinkling sounds, resonant to percussion. Extremities: No cyanosis, clubbing, or edema present. Pulses are palpable 2/2. Left foot with dressing clean dry intact Neuro: Alert and orientated x 4. PERRLA. Cranial nerves 2-12 intact without focal deficit. Skin: Warm, dry, and intact, without rash, erythema, or lesion. Objective Data Vital Signs Vital Signs: Vital Signs - 24 hr 03/01/25 14:00 03/01/25 20:00 03/01/25 20:20 Temperature 97.5 F L 96.7 F L Pulse Rate 89 77 Respiratory Rate 18 16 Blood Pressure 139/65 151/81 H Pulse Oximetry 95 98 Oxygen Delivery Room Air 03/02/25 04:45 03/02/25 08:00 Temperature 97.6 F Pulse Rate 71 Respiratory Rate 20 Blood Pressure 139/69 Pulse Oximetry 97 Oxygen Delivery Room Air Intake/Output Intake/Output: Intake & Output 02/27/25 02/28/25 03/01/25 03/02/25 23:59 23:59 23:59 23:59 Intake Total 1226 1490 Balance 1226 1490 Meds/Results Medications: Active Medications Generic Name Dose Route Start Last Admin Trade Name Freq PRN Reason Stop Dose Admin Acetaminophen 650 mg 03/01/25 12:55 Acetaminophen 325 Mg Tablet PO Q4H PRN Mild Pain (1-3) or Fever Dextrose 12.5 gm 03/01/25 13:29 Dextrose 50% 25 Gm/50 Ml Syringe IV PUSH PRN PRN Hypoglycemia Protocol Enoxaparin Sodium 40 mg 03/02/25 09:00 03/02/25 08:06 Enoxaparin 40 Mg/0.4 Ml Syringe SUB-Q 40 mg DAILY JASMYNE Administration Glucagon 1 mg 03/01/25 13:29 Glucagon For Inj 1 Mg Vial IM PRN PRN Hypoglycemia Protocol Glucose 15 gm 03/01/25 13:29 Glucose Oral Gel 15 Gm Of Glucse In 37.5 Gm Tube PO PRN PRN Hypoglycemia Protocol Hydrochlorothiazide 25 mg 03/02/25 09:00 03/02/25 08:06 Hydrochlorothiazide 25 Mg Tablet PO 25 mg DAILY JASMYNE Administration Dextrose 1,000 mls @ 100 mls/hr 03/01/25 13:29 Dextrose 5% 1,000 Ml IVPB PRN PRN Hypoglycemia Protocol Metronidazole 500 mg in 100 mls @ 100 mls/hr 03/01/25 22:00 03/02/25 13:03 Flagyl 500 Mg/Iso Soln 100 Ml IVPB 100 mls/hr Q8H JASMYNE Administration Vancomycin HCl 1,500 mg in 500 mls @ 250 mls/hr 03/02/25 05:00 03/02/25 07:21 Vancomycin 1,500 Mg/Ns 500 Ml IVPB Infused Q12H JASMYNE Infusion Cefepime HCl 2 gm in 50 mls @ 100 mls/hr 03/02/25 06:00 03/02/25 07:17 Maxipime 2 Gm/Ns 50 Ml IVPB Infused Q12H JASMYNE Infusion Insulin Aspart 2 - 5 units 03/01/25 17:00 03/02/25 11:30 Insulin Aspart (*Bkc) 100 Units/Ml SUB-Q Not Given [facility]ID[facility] Protocol Insulin Aspart 1 - 2 units 03/01/25 21:00 03/01/25 20:27 Insulin Aspart (*Bkc) 100 Units/Ml SUB-Q Not Given HS JASMYNE Protocol Lisinopril 40 mg 03/02/25 09:00 03/02/25 08:06 Lisinopril 20 Mg Tablet PO 40 mg DAILY JASMYNE Administration Pregabalin 100 mg 03/01/25 12:55 03/02/25 13:03 Pregabalin (*Crx) 50 Mg Capsule PO 100 mg Q8HR JASMYNE Administration Tramadol HCl 100 mg 03/01/25 20:17 03/02/25 08:06 Tramadol Hcl (*Crx) 50 Mg Tablet PO 100 mg Q6H PRN Administration Moderate Pain (4-6) Radiology Results: ITS Impressions Foot X-Ray 03/01/25 14:50 IMPRESSION: 1. Increased displacement with new osteolysis periosteal reaction at a transverse osteotomy at the fifth metatarsal diaphysis which is concerning for osteomyelitis. Labs Labs: Laboratory Results - last 24 hr 03/01/25 03/01/25 03/01/25 14:59 16:30 20:27 WBC 9.8 RBC 4.35 L Hgb 13.0 L Hct 39.8 L MCV 91.5 MCH 29.9 MCHC 32.7 RDW 12.2 Plt Count 150 MPV 10.4 Immature Gran % (Auto) 0.3 Neut % (Auto) 59.6 Lymph % (Auto) 27.4 [place] % (Auto) 6.9 Eos % (Auto) 5.3 H Baso % (Auto) 0.5 Lymph # (Auto) 2.68 [place] # (Auto) 0.7 H Eos # (Auto) 0.5 H Baso # (Auto) 0.1 Abs Immat Gran (auto) 0.03 Absolute Neuts (auto) 5.8 Absolute Nucleated RBC 0.000 Nucleated RBC % 0.0 ESR 24 H Sodium 139 Potassium 3.7 Chloride 104 Carbon Dioxide 27 Anion Gap 8 BUN 17 Creatinine 0.66 L Estim Creat Clear Calc 135 Estimated GFR > 60 Glucose 111 H POC Capillary Glucose 103 147 H Hemoglobin A1c 6.8 H Calcium 9.1 C-Reactive Protein 0.9 03/02/25 03/02/25 03/02/25 05:26 07:38 11:26 WBC 8.5 RBC 4.35 L Hgb 13.2 L Hct 39.6 L MCV 91.0 MCH 30.3 MCHC 33.3 RDW 12.0 Plt Count 146 L MPV 10.6 H Immature Gran % (Auto) 0.4 Neut % (Auto) 56.8 Lymph % (Auto) 27.9 [place] % (Auto) 7.8 Eos % (Auto) 6.5 H Baso % (Auto) 0.6 Lymph # (Auto) 2.37 [place] # (Auto) 0.7 H Eos # (Auto) 0.6 H Baso # (Auto) 0.1 Abs Immat Gran (auto) 0.03 Absolute Neuts (auto) 4.8 Absolute Nucleated RBC 0.000 Nucleated RBC % 0.0 ESR Sodium 138 Potassium 3.8 Chloride 105 Carbon Dioxide 27 Anion Gap 6 BUN 14 Creatinine 0.67 L Estim Creat Clear Calc 133 Estimated GFR > 60 Glucose 104 POC Capillary Glucose 127 H 112 H Hemoglobin A1c Calcium 8.7 C-Reactive Protein Quality VTE Prophylaxis VTE prophylaxis: mechanical ordered and pharmacologic ordered
[2025-03-02 14:00] VITALS: BP 121/64; PULSE 68; RESP 16; TEMP 36.4; O2SAT 94
[2025-03-02 16:19] LABS: Glucose Point of Care 142 mg/dl (65-105)
[2025-03-02 21:08] LABS: Glucose Point of Care 109 mg/dl (65-105)
[2025-03-02 22:00] VITALS: BP 124/74; PULSE 72; RESP 18; TEMP 36.6; O2SAT 96
[2025-03-03] MEDS: CEFEPIME 2 GM/NS 50 ML 2 GM/50 ML BAG IVPB ×2 (04:05→17:26)
[2025-03-03] MEDS: metroNIDAZOLE 500 MG/ISO 100ML 500 MG/100 ML BAG 100 MG IVPB ×3 (04:40→21:46)
[2025-03-03 04:47] LABS: Estimated CRCL calculation 137 ml/min; Estimated Glomerular Filt Rate > 60
[2025-03-03 04:53] LABS: Vancomycin Trough 8.8 ug/mL (10.0-20.0)
[2025-03-03] MEDS: PREGABALIN (*CRX) 50 MG CAPSULE 100 MG PO ×3 (05:24→21:44)
[2025-03-03] MEDS: traMADol HCL (*CRX) 50 MG TABLET 100 MG PO ×2 (05:26→17:25)
[2025-03-03] MEDS: VANCOMYCIN 1,750 MG/NS 500 ML 1,750 MG/500 ML BAG 250 MG IVPB ×3 (05:57→22:57)
[2025-03-03 06:00] VITALS: BP 122/71; PULSE 69; RESP 18; TEMP 36.6; O2SAT 98
[2025-03-03 07:16] LABS: Glucose Point of Care 127 mg/dl (65-105)
[2025-03-03] MEDS: hydroCHLOROthiazide 25 MG TABLET PO (09:38)
[2025-03-03] MEDS: lisinopriL 20 MG TABLET 40 MG PO (09:38)
[2025-03-03] MEDS: ENOXAPARIN 40 MG/0.4 ML SYRINGE SUB-Q (09:39)
[2025-03-03 12:06] LABS: Glucose Point of Care 140 mg/dl (65-105)
--- NOTE | 2025-03-03 13:26 | WPDPN ---
Progress Note: A&P Assessment and Plan (1) Cellulitis of foot associated with diabetes mellitus: Code(s): E11.628 - Type 2 diabetes mellitus with other skin complications; L03.119 - Cellulitis of unspecified part of limb Status: Acute (2) Diabetic ulcer of right foot: Code(s): E11.621 - Type 2 diabetes mellitus with foot ulcer; L97.519 - Non-pressure chronic ulcer of other part of right foot with unspecified severity Status: Acute Assessment and Plan: Continue with Mepilex Ag and Coban until wound healed. Remain non weight bearing with knee scooter MRI shows no definitive signs of osteomyelitis Wound nearly fully healed cellulitis nearly fully resolved One more day of IV abx followed by d/c on oral antibioitics once culture and sensitivity results are obtained Patient will be seen in my office next Friday03/09/2025. [facility] bone scan canceled. Thanks for help with this patient, Dr. Cano Subjective Date/time seen: 03/03/25 13:26 Interval history: Patient seen at bedside resting comfortably day 2 of admission for IV abx. No FCNV. He has now been compliant with being non weight bearing with his knee scooter. Exam Skin: Wounds: wounds noted (Edema and erythema resolving. Wound nearly fully healed. No calor.) Objective Data Vital Signs Vital Signs: Vital Signs - 24 hr 03/02/25 14:00 03/02/25 22:00 03/03/25 06:00 Temperature 36.4 C L 36.6 C 36.6 C Pulse Rate 68 72 69 Respiratory Rate 16 18 18 Blood Pressure 121/64 124/74 122/71 Pulse Oximetry 94 96 98 Oxygen Delivery 03/03/25 09:40 Temperature Pulse Rate Respiratory Rate Blood Pressure Pulse Oximetry Oxygen Delivery Room Air Intake/Output Intake/Output: Intake & Output 02/28/25 03/01/25 03/02/25 03/03/25 23:59 23:59 23:59 23:59 Intake Total 1226 2480 1190 Balance 1226 2480 1190 Meds/Results Medications: Active Medications Generic Name Dose Route Start Last Admin Trade Name Freq PRN Reason Stop Dose Admin Acetaminophen 650 mg 03/01/25 12:55 Acetaminophen 325 Mg Tablet PO Q4H PRN Mild Pain (1-3) or Fever Dextrose 12.5 gm 03/01/25 13:29 Dextrose 50% 25 Gm/50 Ml Syringe IV PUSH PRN PRN Hypoglycemia Protocol Enoxaparin Sodium 40 mg 03/02/25 09:00 03/03/25 09:39 Enoxaparin 40 Mg/0.4 Ml Syringe SUB-Q 40 mg DAILY JASMYNE Administration Glucagon 1 mg 03/01/25 13:29 Glucagon For Inj 1 Mg Vial IM PRN PRN Hypoglycemia Protocol Glucose 15 gm 03/01/25 13:29 Glucose Oral Gel 15 Gm Of Glucse In 37.5 Gm Tube PO PRN PRN Hypoglycemia Protocol Hydrochlorothiazide 25 mg 03/02/25 09:00 03/03/25 09:38 Hydrochlorothiazide 25 Mg Tablet PO 25 mg DAILY JASMYNE Administration Dextrose 1,000 mls @ 100 mls/hr 03/01/25 13: Dextrose 5% 1,000 Ml IVPB PRN PRN Hypoglycemia Protocol Metronidazole 500 mg in 100 mls @ 100 mls/hr 03/01/25 22:00 03/03/25 06:31 Flagyl 500 Mg/Iso Soln 100 Ml IVPB Infused Q8H JASMYNE Infusion Cefepime HCl 2 gm in 50 mls @ 100 mls/hr 03/02/25 06:00 03/03/25 04:35 Maxipime 2 Gm/Ns 50 Ml IVPB Infused Q12H JASMYNE Infusion Vancomycin HCl 1,750 mg in 500 mls @ 250 mls/hr 03/03/25 06:00 03/03/25 08:00 Vancomycin 1,750 Mg/Ns 500 Ml IVPB Infused Q8H JASMYNE Infusion Insulin Aspart 2 - 5 units 03/01/25 17:00 03/03/25 12:22 Insulin Aspart (*Bkc) 100 Units/Ml SUB-Q Not Given [facility]ID[facility] Protocol Insulin Aspart 1 - 2 units 03/01/25 21:00 03/02/25 21:04 Insulin Aspart (*Bkc) 100 Units/Ml SUB-Q Not Given HS [facility] Protocol Lisinopril 40 mg 03/02/25 09:00 03/03/25 09:38 Lisinopril 20 Mg Tablet PO 40 mg DAILY JASMYNE Administration Pregabalin 100 mg 03/01/25 12:55 03/03/25 05:24 Pregabalin (*Crx) 50 Mg Capsule PO 100 mg Q8HR JASMYNE Administration Tramadol HCl 100 mg 03/01/25 20:17 03/03/25 05:26 Tramadol Hcl (*Crx) 50 Mg Tablet PO 100 mg Q6H PRN Administration Moderate Pain (4-6) Radiology Results: ITS Impressions Foot X-Ray 03/01/25 14:50 IMPRESSION: 1. Increased displacement with new osteolysis periosteal reaction at a transverse osteotomy at the fifth metatarsal diaphysis which is concerning for osteomyelitis. Foot MRI 03/03/25 06:06 IMPRESSION: Displaced osteotomy of the distal fifth metatarsal neck/shaft with surrounding soft tissue edema and postsurgical debris. Findings all appear to be most likely postoperative in nature. Early osteomyelitis is not definitively excluded. Correlate clinically. Labs Labs: Laboratory Results - last 24 hr 03/02/25 03/02/25 03/03/25 16:11 21:03 04:28 Creatinine 0.65 L Estim Creat Clear Calc 137 Estimated GFR > 60 POC Capillary Glucose 142 H 109 H Vancomycin Trough 8.8 L 03/03/25 03/03/25 07:03 11:12 Creatinine Estim Creat Clear Calc Estimated GFR POC Capillary Glucose 127 H 140 H Vancomycin Trough
--- NOTE | 2025-03-03 13:29 | P.PNIM_ITS ---
Progress Note: A&P Assessment and Plan (1) Diabetic foot ulcer: Code(s): E11.621 - Type 2 diabetes mellitus with foot ulcer; L97.509 - Non-pressure chronic ulcer of other part of unspecified foot with unspecified severity Status: Acute Assessment and Plan: x-ray shows Increased displacement with new osteolysis periosteal reaction at a transverse osteotomy at the fifth metatarsal diaphysis which is concerning for osteomyelitis. MRI foot showed unable to r/o osteo completely Cefepime Flagyl and vancomycin Podiatry following (2) Type 2 diabetes mellitus: Code(s): E11.9 - Type 2 diabetes mellitus without complications Status: Acute Assessment and Plan: Diabetic diet Lantus and SSI Accu-Cheks a.c. HS Continue lyrica (3) HTN (hypertension): Code(s): I10 - Essential (primary) hypertension Status: Acute Assessment and Plan: Continue antihypertensives Plan DVT prophylaxis on Sq Lovenox Subjective Date/time seen: 03/03/25 13:29 Interval history: Comfortable at bedside Review of Systems Review of Systems: 12 systems were reviewed and are negativ e except for as per HPI. Exam Narrative: General: well appearing, appears stated age. HEENT: normocephalic, atraumatic. Mucous membranes moist. EOMI, PERRLA, bilateral sclera anicteric, no conjunctival injection. Neck supple without JVD, lymphadenopathy, or bruit. Respiratory: clear to ascultation bilaterally. No rales/rhonic/wheezes. Cardiovascular: Regular rate and rhythm, normal S1-S2 upon ascultation. No murmurs, rubs, or clicks. PMI is nondisplaced, capillary refill less than 3 second. Abdomen: Soft, round, no pulsatile masses, nondistended and nontender. No rebound, no guarding. No CVA tenderness, no hepatosplenomegaly. Bowel sounds present to all four quadrants. No high pitch or tinkling sounds, resonant to percussion. Extremities: No cyanosis, clubbing, or edema present. Pulses are palpable 2/2. Left foot with dressing clean dry intact Neuro: Alert and orientated x 4. PERRLA. Cranial nerves 2-12 intact without focal deficit. Skin: Warm, dry, and intact, without rash, erythema, or lesion. Objective Data Vital Signs Vital Signs: Vital Signs - 24 hr 03/02/25 14:00 03/02/25 22:00 03/03/25 06:00 Temperature 97.5 F L 97.8 F 98 F Pulse Rate 68 72 69 Respiratory Rate 16 18 18 Blood Pressure 121/64 124/74 122/71 Pulse Oximetry 94 96 98 Oxygen Delivery 03/03/25 09:40 Temperature Pulse Rate Respiratory Rate Blood Pressure Pulse Oximetry Oxygen Delivery Room Air Intake/Output Intake/Output: Intake & Output 02/28/25 03/01/25 03/02/25 03/03/25 23:59 23:59 23:59 23:59 Intake Total 1226 2480 1190 Balance 1226 2480 1190 Meds/Results Medications: Active Medications Generic Name Dose Route Start Last Admin Trade Name Freq PRN Reason Stop Dose Admin Acetaminophen 650 mg 03/01/25 12:55 Acetaminophen 325 Mg Tablet PO Q4H PRN Mild Pain (1-3) or Fever Dextrose 12.5 gm 03/01/25 13:29 Dextrose 50% 25 Gm/50 Ml Syringe IV PUSH PRN PRN Hypoglycemia Protocol Enoxaparin Sodium 40 mg 03/02/25 09:00 03/03/25 09:39 Enoxaparin 40 Mg/0.4 Ml Syringe SUB-Q 40 mg DAILY JASMYNE Administration Glucagon 1 mg 03/01/25 13:29 Glucagon For Inj 1 Mg Vial IM PRN PRN Hypoglycemia Protocol Glucose 15 gm 03/01/25 13:29 Glucose Oral Gel 15 Gm Of Glucse In 37.5 Gm Tube PO PRN PRN Hypoglycemia Protocol Hydrochlorothiazide 25 mg 03/02/25 09:00 03/03/25 09:38 Hydrochlorothiazide 25 Mg Tablet PO 25 mg DAILY JASMYNE Administration Dextrose 1,000 mls @ 100 mls/hr 03/01/25 13:29 Dextrose 5% 1,000 Ml IVPB PRN PRN Hypoglycemia Protocol Metronidazole 500 mg in 100 mls @ 100 mls/hr 03/01/25 22:00 03/03/25 06:31 Flagyl 500 Mg/Iso Soln 100 Ml IVPB Infused Q8H JASMYNE Infusion Cefepime HCl 2 gm in 50 mls @ 100 mls/hr 03/02/25 06:00 03/03/25 04:35 Maxipime 2 Gm/Ns 50 Ml IVPB Infused Q12H JASMYNE Infusion Vancomycin HCl 1,750 mg in 500 mls @ 250 mls/hr 03/03/25 06:00 03/03/25 08:00 Vancomycin 1,750 Mg/Ns 500 Ml IVPB Infused Q8H JASMYNE Infusion Insulin Aspart 2 - 5 units 03/01/25 17:00 03/03/25 12:22 Insulin Aspart (*Bkc) 100 Units/Ml SUB-Q Not Given [facility] Protocol Insulin Aspart 1 - 2 units 03/01/25 21:00 03/02/25 21:04 Insulin Aspart (*Bkc) 100 Units/Ml SUB-Q Not Given [facility] Protocol Lisinopril 40 mg 03/02/25 09:00 03/03/25 09:38 Lisinopril 20 Mg Tablet PO 40 mg DAILY JASMYNE Administration Pregabalin 100 mg 03/01/25 12:55 03/03/25 05:24 Pregabalin (*Crx) 50 Mg Capsule PO 100 mg Q8HR JASMYNE Administration Tramadol HCl 100 mg 03/01/25 20:17 03/03/25 05:26 Tramadol Hcl (*Crx) 50 Mg Tablet PO 100 mg Q6H PRN Administration Moderate Pain (4-6) Radiology Results: ITS Impressions Foot X-Ray 03/01/25 14:50 IMPRESSION: 1. Increased displacement with new osteolysis periosteal reaction at a transverse osteotomy at the fifth metatarsal diaphysis which is concerning for osteomyelitis. Foot MRI 03/03/25 06:06 IMPRESSION: Displaced osteotomy of the distal fifth metatarsal neck/shaft with surrounding soft tissue edema and postsurgical debris. Findings all appear to be most likely postoperative in nature. Early osteomyelitis is not definitively excluded. Correlate clinically. Labs Labs: Laboratory Results - last 24 hr 03/02/25 03/02/25 03/03/25 16:11 21:03 04:28 Creatinine 0.65 L Estim Creat Clear Calc 137 Estimated GFR > 60 POC Capillary Glucose 142 H 109 H Vancomycin Trough 8.8 L 03/03/25 03/03/25 07:03 11:12 Creatinine Estim Creat Clear Calc Estimated GFR POC Capillary Glucose 127 H 140 H Vancomycin Trough Quality VTE Prophylaxis VTE prophylaxis: mechanical ordered and pharmacologic ordered
[2025-03-03 14:00] VITALS: BP 158/70; PULSE 71; RESP 16; TEMP 36.5; O2SAT 97
[2025-03-03 16:17] LABS: Glucose Point of Care 115 mg/dl (65-105)
[2025-03-03 20:37] VITALS: BP 143/73; PULSE 72; RESP 16; TEMP 36.4; O2SAT 94
[2025-03-03 20:58] LABS: Glucose Point of Care 110 mg/dl (65-105)
[2025-03-04 05:06] VITALS: BP 121/74; PULSE 64; RESP 16; TEMP 36.3; O2SAT 95
[2025-03-04 05:37] LABS: Basophils Percent Auto 0.4 % (0.2-1.2); Eosinophils Absolute Auto 0.6 K/mm3 (0-0.3); Hematocrit 41.7 % (42.0-52.0); Hemoglobin 13.4 g/dL (14.0-18.0); Immature Granulocyte Absolute 0.03 K/mm3 (0.00-0.031); Immature Granulocyte Percent A 0.3 % (0-0.5); Lymphocytes Absolute Auto 2.31 K/mm3 (0.9-3.2); Lymphocytes Percent Auto 25.3 % (18.3-44.2); Mean Corpuscular HGB Conc 32.1 g/dl (32-36); Mean Corpuscular Hemoglobin 29.5 pg (26-34); Mean Corpuscular Volume 91.6 fl (80-100); Mean Platelet Volume 10.3 fl (7.4-10.4); Monocytes Percent Auto 10.5 % (2.6-8.5); Neutrophils Absolute Auto 5.3 K/mm3 (1.3-6.7); Neutrophils Percent Auto 57.5 % (45.5-73.1); Platelet Count Result 150 k/mm3 (150-375); Red Blood Count 4.55 M/mm3 (4.6-6.20); Red Cell Distribution Width 11.9 % (11.5-14.5); White Blood Count 9.1 K/mm3 (4.5-10.0)
[2025-03-04] MEDS: CEFEPIME 2 GM/NS 50 ML 2 GM/50 ML BAG IVPB (05:38)
[2025-03-04] MEDS: metroNIDAZOLE 500 MG/ISO 100ML 500 MG/100 ML BAG 100 MG IVPB ×2 (05:40→12:37)
[2025-03-04] MEDS: PREGABALIN (*CRX) 50 MG CAPSULE 100 MG PO ×2 (05:45→12:37)
[2025-03-04 05:59] LABS: Alanine Aminotransferase 29 U/L (6-50); Albumin Level 3.9 g/dL (3.5-5.1); Alkaline Phosphatase 61 U/L (38-126); Anion Gap 7 mmol/L (4-12); Aspartate Amino Transferase 34 U/L (17-59); Bilirubin,Total 0.5 mg/dL (0.2-1.3); Blood Urea Nitrogen 14 mg/dL (9-20); Calcium 8.9 mg/dL (8.4-10.2); Carbon Dioxide 27 mmol/L (22-30); Chloride 105 mmol/L (98-107); Estimated CRCL calculation 133 ml/min; Estimated Glomerular Filt Rate > 60; Glucose 117 mg/dL (65-110); Magnesium 2.3 mg/dL (1.6-2.3); Potassium 3.8 mmol/L (3.4-5.0); Sodium 139 mmol/L (137-145)
[2025-03-04 06:04] LABS: Vancomycin Trough 17.4 ug/mL (10.0-20.0)
[2025-03-04 07:43] LABS: Glucose Point of Care 133 mg/dl (65-105)
[2025-03-04] MEDS: VANCOMYCIN 1,750 MG/NS 500 ML 1,750 MG/500 ML BAG 250 MG IVPB (08:59)
[2025-03-04] MEDS: hydroCHLOROthiazide 25 MG TABLET PO (09:00)
[2025-03-04] MEDS: ENOXAPARIN 40 MG/0.4 ML SYRINGE SUB-Q (09:00)
[2025-03-04] MEDS: lisinopriL 20 MG TABLET 40 MG PO (09:00)
[2025-03-04] MEDS: traMADol HCL (*CRX) 50 MG TABLET 100 MG PO (09:13)
[2025-03-04 11:58] LABS: Glucose Point of Care 137 mg/dl (65-105)
--- NOTE | 2025-03-04 13:29 | P.DS_ITS ---
DS: Admitting Diagnosis Discharge Date 03/04/25 Admitting Diagnosis right foot wound DS: Discharge Diagnosis Discharge Diagnosis Plan MRI foot Displaced osteotomy of the distal fifth metatarsal neck/shaft with surrounding soft tissue edema and postsurgical debris. Findings all appear to be most likely postoperative in nature. Early osteomyelitis is not definitively excluded. Correlate clinically. DS: Summary Hospital Course Hospital Course: 64-year-old male past medical history of diabetes, chronic pain severe neuropathy presents nonhealing diabetic wound to the right foot. He states that he has been on antibiotics for 2 weeks without any improvement. 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 Patient denies nausea vomiting fever chills. Lab work shows anemia at 13.0, x-ray shows Increased displacement with new osteolysis periosteal reaction at a transverse osteotomy at the fifth metatarsal diaphysis which is concerning for osteomyelitis. MRI unable to exclude osteomyelitis Podiatry was consulted, wound culture obtained, growing Acinetobacter and Citrobacter, podiatry evaluation noted patient can be discharged today on oral antibiotics and will follow up with at the office. Patient discharged on Doxycycline, Flagyl and Levaquin x 14 days, follow up with Podiatry as instructed. F/u with PCP in 3-5 days Time Spent with Patient Time attestation: Total time spent providing and/or coordinating discharge services: DS: Data Data Completed and Pending Labs on day of discharge: Labs from last 24 hours 03/04/25 03/04/25 03/04/25 11:40 07:39 05:04 WBC 9.1 RBC 4.55 L Hgb 13.4 L Hct 41.7 L MCV 91.6 MCH 29.5 MCHC 32.1 RDW 11.9 Plt Count 150 MPV 10.3 Immature Gran % (Auto) 0.3 Neut % (Auto) 57.5 Lymph % (Auto) 25.3 Republic % (Auto) 10.5 H Eos % (Auto) 6.0 H Baso % (Auto) 0.4 Lymph # (Auto) 2.31 Republic # (Auto) 1.0 H Eos # (Auto) 0.6 H Baso # (Auto) 0.0 Abs Immat Gran (auto) 0.03 Absolute Neuts (auto) 5.3 Absolute Nucleated RBC 0.000 Nucleated RBC % 0.0 Sodium 139 Potassium 3.8 Chloride 105 Carbon Dioxide 27 Anion Gap 7 BUN 14 Creatinine 0.67 L Estim Creat Clear Calc 133 Estimated GFR > 60 Glucose 117 H POC Capillary Glucose 137 H 133 H Calcium 8.9 Magnesium 2.3 Total Bilirubin 0.5 AST 34 ALT 29 Alkaline Phosphatase 61 Total Protein 7.0 Albumin 3.9 Vancomycin Trough 17.4 03/03/25 03/03/25 20:41 16:14 WBC RBC Hgb Hct MCV MCH MCHC RDW Plt Count MPV Immature Gran % (Auto) Neut % (Auto) Lymph % (Auto) Republic % (Auto) Eos % (Auto) Baso % (Auto) Lymph # (Auto) Republic # (Auto) Eos # (Auto) Baso # (Auto) Abs Immat Gran (auto) Absolute Neuts (auto) Absolute Nucleated RBC Nucleated RBC % Sodium Potassium Chloride Carbon Dioxide Anion Gap BUN Creatinine Estim Creat Clear Calc Estimated GFR Glucose POC Capillary Glucose 110 H 115 H Calcium Magnesium Total Bilirubin AST ALT Alkaline Phosphatase Total Protein Albumin Vancomycin Trough Preliminary micro results at discharge 03/02/25 09:53 Anaerobic Culture - Preliminary Foot Right Aerobic Culture - Preliminary Acinetobacter pittii Citrobacter braakii 03/01/25 14:59 Blood Culture - Preliminary Blood 03/01/25 15:07 Blood Culture - Preliminary Blood Discharge Plan Discharge Attending physician on discharge: Chrissy Velázquez Consulting providers: Juan Cano Jr. Discharging Clinician: Chrissy Velázquez Anticipated Discharge Date/Time: 03/04/25 13:21 Patient Disposition: Home Activity: as tolerated Diet: as tolerated and diabetic Patient Instructions: Antibiotic Form Patient Language: [place] Citizen Stand Alone Forms: General Discharge Information Follow-up/Referrals: Juan Cano Jr., DPM [Physician] - (F/u with Podiatry as instructed ) Kaden,MD Marcial [Primary Care Provider] - (F/u with PCP in 3-5 days ) Discharge Medications: New levofloxacin 750 mg tablet 750 mg PO DAILY 14 Days Qty: 14 0RF doxycycline hyclate 100 mg capsule 100 mg PO BID 14 Days Qty: 28 0RF metronidazole 500 mg tablet 500 mg PO Q8H Qty: 14 0RF Continued lisinopril-hydrochlorothiazide 20-12.5 mg tablet 2 tablet PO DAILY tramadol 50 mg tablet 100 mg PO Q6H PRN (Reason: pain) pregabalin 100 mg capsule 100 mg PO Q8H naproxen 500 mg tablet 500 mg PO Q12H Rx Instructions: take half in the morning and half in the evening cyanocobalamin (vitamin B-12) 1,000 mcg/mL solution 1,000 mcg IM MONTHLY Mounjaro 2.5 mg/0.5 mL pen injector 2.5 mg subcut WEEKLY Date of admission: 03/03/25 09:47 Primary Care Provider: Kaden,[facility] Admitting Provider: Juliet Lozano Attending physician on admission: Juliet Lozano Condition: Improved
[2025-03-04 14:00] VITALS: BP 118/93; PULSE 77; RESP 18; TEMP 36.8; O2SAT 98
== END 2025-03-04 14:25 | disposition home or self-care (01) | DRG 638 ==
PROVIDERS: Nurse Practitioner Gerontology; Podiatrist Foot & Ankle Surgery; Admitting Provider Family Medicine; PCP Family Medicine; Visit Provider Internal Medicine
DX: E11.621 Type 2 diabetes mellitus with foot ulcer (principal); L03.115 Cellulitis of right lower limb; E11.628 Type 2 diabetes mellitus with other skin complications; E11.40 Type 2 diabetes mellitus with diabetic neuropathy, unspecified; L97.519 Non-pressure chronic ulcer of other part of right foot with unspecified severity; I10 Essential (primary) hypertension; D51.0 Vitamin B12 deficiency anemia due to intrinsic factor deficiency; E78.5 Hyperlipidemia, unspecified; M47.812 Spondylosis without myelopathy or radiculopathy, cervical region; G89.29 Other chronic pain; Z77.090 Contact with and (suspected) exposure to asbestos; Z87.891 Personal history of nicotine dependence
CPT/HCPCS: 36415; 73630; 73720; 80048; 80053; 80202; 82565; 82948; 83036; 83735; 85025; 85652; 86140; 87040; 87070; 87075; 87186; 87205; A9270; A9579; G0378; G0379; J0692; J1650; J1836; J3370